=== PATIENT | male | born 1950 | race Caucasian/White ===

== ENCOUNTER → 2018-06-13 07:36 | Outpatient (CLI) | payer MEDICARE, OTHER, SELFPAY ==
[2018-06-13 10:01] LABS: Alanine Aminotransferase 25 IU/L (21-72); Albumin 3.7 g/dL (3.5-5.0); Albumin Globulin Ratio 1.3 (1.0-2.8); Alkaline Phosphatase 87 U/L (38-126); Aspartate Aminotransferase 15 IU/L (17-59); Bilirubin Total 0.7 mg/dL (0.2-1.3); Blood Urea Nitrogen 21 mg/dL (9-20); Calcium 9.6 mg/dL (8.4-10.2); Carbon Dioxide 29 mmol/L (22-32); Chloride 106 mmol/L (98-107); Cholesterol 184 mg/dL (140-199); Estimated Glomerular Filt Rate > 60.0 mL/min (>60); Globulin 2.9 g/dL (1.7-4.1); Glucose 91 mg/dL (80-110); HDL Cholesterol 50 mg/dL (40-60); HEMOLYSIS < 15 (0-50); LDL Cholesterol Calculated 119 mg/dL (<100); Potassium 4.8 mmol/L (3.4-5.1); Sodium 144 mmol/L (137-145); Total Protein 6.6 g/dL (6.3-8.2); Triglycerides 75 mg/dL (35-150)
== END ==
PROVIDERS: PCP Internal Medicine; Visit Provider Internal Medicine
DX: M15.0 Primary generalized (osteo)arthritis (principal); Z00.00 Encounter for general adult medical examination without abnormal findings; E78.00 Pure hypercholesterolemia, unspecified
CPT/HCPCS: 36415; 80053; 80061

== ENCOUNTER → 2018-07-04 11:09 | Outpatient (CLI) | payer MEDICARE, OTHER, SELFPAY ==
--- NOTE | 2018-07-04 | DI.RAD.S_ITS ---
PROCEDURE: FL BARIUM SWALLOW W SPEECH INDICATIONS: DYSPHAGIA TECHNIQUE: Examination was conducted in conjunction with speech pathology per standard protocol. In the lateral projection, filming was performed of the patient swallowing. AP projection filming may also be performed with patient swallowing. COMPARISON: None. FINDINGS: Function: The oral preparatory phase appears normal, with proper containment. The subsequent oral propulsive phase, pharyngeal phase, and esophageal phase of swallowing also appear normal with all proffered substances. No laryngotracheal penetration or aspiration. No pathologic vallecular pooling. Morphology: No cricopharyngeal bar is identified. No cervical esophageal webs. No Zenker's diverticulum. No strictures. IMPRESSION: No aspiration Dictated by: Zac Brown M.D. on 07/04/2018 at 17:24 Approved by: Zac Brown M.D. on 07/04/2018 at 17:24
== END ==
PROVIDERS: Family Provider Internal Medicine; PCP Internal Medicine; Visit Provider Internal Medicine
DX: R13.10 Dysphagia, unspecified (principal)
CPT/HCPCS: 74230; 92611

== ENCOUNTER 2018-12-16 09:00 | Outpatient (RCR) | payer MEDICARE, OTHER, SELFPAY ==
--- NOTE | 2018-11-08 11:04 | PT.OPPOC ---
Current Diagnoses Unilateral primary osteoarthritis, left knee (11/08/18) Difficulty in walking, not elsewhere classified (11/08/18) Weakness (11/08/18) Presence of left artificial knee joint (11/08/18) Provider Visit Care Team Role Provider Type Rohan Joya MD Primary Care Provider Physician Specialty: Internal Medicine Address: [address] [place] [address], [id number] Email: Reynaldo Abad MD Attending Provider Non-Staff Specialty: Medical Address: [address] [place] [address], [facility] Email: Plan Of Care PT-OP-T Assessment and Plan Start: 11/08/18 09:46 Freq: Status: Active Protocol: Document 11/08/18 09:46 CORINA (Rec: 11/08/18 11:00 SAK [id number]) Physical Therapy Assessment Rehab Potential Rehabilitation Potential Excellent Evaluation Complexity Number of Personal Factors/Comorbidities 1-2 Number of Body Systems Impaired 4 or More Clinical Presentation at Evaluation Stable Impairments Impairments Functional Mobility Gait ROM Strength Goals 4 Impairment Lower extremity functional scale LEFS 56% Short Term Goal (STG) Improve LEFS to 65% STG Duration 4 wks Solderer Assembler Goal (LTG) Improve LEFS to at least 75% LTG Duration 8 wks 3 Impairment strength Short Term Goal (STG) Patient to be compliant with HEP for purposes of knee ROM and strengthening STG Duration 4 wks Half-Way Goal (LTG) Patient to demonstrate at least 4+/4 muscle strength in knee flexors and extensors LTG Duration 8 wks 2 Impairment antalgic gait, step-to on stairs Short Term Goal (STG) Patient will be able to walk on level surfaces without device without significant limp STG Duration 4 wks Half-Way Goal (LTG) Patient will be able to ambulate up/down standard height stairs with reciprocal pattern LTG Duration 8 wks 1 Impairment left knee ROM Short Term Goal (STG) Improve left knee ROM to 5-110 STG Duration 4 wks Solderer Assembler Goal (LTG) Improve left knee ROM to 0-120 LTG Duration 8 wks Assessment Summary Assessment Patient presents to PT 2 wks s /p left TKA overall doing well with limitations in left knee ROM, strength, gait, and functional mobility. He is compliant to his HEP and icing . His motion and pain level are much better than at this point after his right TKA. Anticipate he will progress well and be able to achieve the above goals, possibly ahead of schedule. Physical Therapy Plan Frequency and Duration Frequency of Treatment 2x/Week Duration of Treatment 8 wks Plan of Care Start Date 11/08/18 Plan of Care End Date 01/06/19 Therapeutic Interventions Therapeutic Interventions Aquatic Therapy Gait Training Home Exercise Program Manual Therapy Neuromuscular Re-education Patient/Caregiver Education Self-Care/Home Management Soft Tissue Mobilization Taping Therapeutic Activities Therapeutic Exercises Modalities Cold Pack/Ice Massage Electric Stimulation Next Visit Focus/Plan Next Note Type Treatment Note Next Visit Plan Assess response to first PT session, progress ther ex and HEP, continue with modalities for edema and pain control. Plan of Care Dates Plan of Care Start Date 11/08/18 Plan of Care End Date 01/06/19 Please Sign and Return: I have reviewed this Plan of Care and certify that the skilled therapy services above are required to meet the patient?s needs. Physician Signature Date Printed Name and Credentials Clinical Instructor Signature Printed Name and Credentials
--- NOTE | 2018-11-08 11:04 | PT.OPPOC ---
Current Diagnoses Unilateral primary osteoarthritis, left knee (11/08/18) Difficulty in walking, not elsewhere classified (11/08/18) Weakness (11/08/18) Presence of left artificial knee joint (11/08/18) Provider Visit Care Team Role Provider Type Rohan Joya MD Primary Care Provider Physician Specialty: Internal Medicine Address: [address] [place] [address], [id number] Email: Reynaldo Abad MD Attending Provider Non-Staff Specialty: Medical Address: [address] [place] [address], [facility] Email: Plan Of Care PT-OP-T Assessment and Plan Start: 11/08/18 09:46 Freq: Status: Active Protocol: Document 11/08/18 09:46 CORINA (Rec: 11/08/18 11:00 SAK [id number]) Physical Therapy Assessment Rehab Potential Rehabilitation Potential Excellent Evaluation Complexity Number of Personal Factors/Comorbidities 1-2 Number of Body Systems Impaired 4 or More Clinical Presentation at Evaluation Stable Impairments Impairments Functional Mobility Gait ROM Strength Goals 4 Impairment Lower extremity functional scale LEFS 56% Short Term Goal (STG) Improve LEFS to 65% STG Duration 4 wks Retail Sales Vitamin Consultant Goal (LTG) Improve LEFS to at least 75% LTG Duration 8 wks 3 Impairment strength Short Term Goal (STG) Patient to be compliant with HEP for purposes of knee ROM and strengthening STG Duration 4 wks Group Home Goal (LTG) Patient to demonstrate at least 4+/4 muscle strength in knee flexors and extensors LTG Duration 8 wks 2 Impairment antalgic gait, step-to on stairs Short Term Goal (STG) Patient will be able to walk on level surfaces without device without significant limp STG Duration 4 wks Group Home Goal (LTG) Patient will be able to ambulate up/down standard height stairs with reciprocal pattern LTG Duration 8 wks 1 Impairment left knee ROM Short Term Goal (STG) Improve left knee ROM to 5-110 STG Duration 4 wks Retail Sales Vitamin Consultant Goal (LTG) Improve left knee ROM to 0-120 LTG Duration 8 wks Assessment Summary Assessment Patient presents to PT 2 wks s /p left TKA overall doing well with limitations in left knee ROM, strength, gait, and functional mobility. He is compliant to his HEP and icing . His motion and pain level are much better than at this point after his right TKA. Anticipate he will progress well and be able to achieve the above goals, possibly ahead of schedule. Physical Therapy Plan Frequency and Duration Frequency of Treatment 2x/Week Duration of Treatment 8 wks Plan of Care Start Date 11/08/18 Plan of Care End Date 01/06/19 Therapeutic Interventions Therapeutic Interventions Aquatic Therapy Gait Training Home Exercise Program Manual Therapy Neuromuscular Re-education Patient/Caregiver Education Self-Care/Home Management Soft Tissue Mobilization Taping Therapeutic Activities Therapeutic Exercises Modalities Cold Pack/Ice Massage Electric Stimulation Next Visit Focus/Plan Next Note Type Treatment Note Next Visit Plan Assess response to first PT session, progress ther ex and HEP, continue with modalities for edema and pain control. Plan of Care Dates Plan of Care Start Date 11/08/18 Plan of Care End Date 01/06/19 Please Sign and Return: I have reviewed this Plan of Care and certify that the skilled therapy services above are required to meet the patient?s needs. Physician Signature Date Printed Name and Credentials Clinical Instructor Signature Printed Name and Credentials
--- NOTE | 2018-11-08 11:05 | PT.OIE ---
Current Diagnoses Unilateral primary osteoarthritis, left knee (11/08/18) Difficulty in walking, not elsewhere classified (11/08/18) Weakness (11/08/18) Presence of left artificial knee joint (11/08/18) Provider Visit Care Team Role Provider Type Rohan Joya MD Primary Care Provider Physician Specialty: Internal Medicine Address: [address] [place] [address], [id number] Email: Reynaldo Abad MD Attending Provider Non-Staff Specialty: Medical Address: [address] [place] [address], [facility] Email: Physical Therapy Initial Evaluation PT-OP-A Visit Information Start: 11/08/18 09:46 Freq: Status: Active Protocol: Document 11/08/18 09:46 SAK (Rec: 11/08/18 10:24 SAK [id number]) Out-Patient Physical Therapy Visit Information Visit Information Visit Type Initial Evaluation Visit Start Time 09:45 Visit Stop Time 10:40 Total Visit Minutes 55 Visit Number 1 Number of CREPE MAKER Visits 0 Evaluation Information Evaluation Date 11/08/18 PT-OP-B Current Condition Start: 11/08/18 09:46 Freq: Status: Active Protocol: Document 11/08/18 09:46 SAK (Rec: 11/08/18 09:57 SAK [id number]) Current Condition History of Current Condition Onset Date 10/24/18 left TKA Current Complaints limited left knee function History of Current Condition Reports left knee feels better than right, using walker and cane. Prior Treatments and Tests history of right TKA Nov 2018. with difficulty with rehab. Saw surgeon 1 wks ago; patient reports he was pleased with patient's knee. Future Testing and Treatments Planned next appointment with surgeon 12/04/18. Treatment Goals Patient/Caregiver Goals Return to usual activities including biking, pickle ball, golfing. Prior Functional Status Baseline Function- ADL's Independent Baseline Function- Mobility Independent Baseline Function- Gait indep no device Baseline Function- Recreation/Hobbies pickle ball bycycling golfing Current Functional Impairments (Reported) Functional Limitations- ADL's painful Functional Limitations- Mobility/Gait Use of cane, walker Functional Limitations- Recreation/ unable Hobbies PT-OP-C Subjective Start: 11/08/18 09:46 Freq: Status: Active Protocol: Document 11/08/18 09:46 [facility] (Rec: 11/08/18 11:00 [facility] [id number]) Patient Questionnaires Lower Extremity Functional Scale LEFS Score 56 LEFS Impairment 20 to 39% Impaired (Score 48- 62) OP-PT Pain Assessment Pain Assessment Grid Paper Pain Assessment Grid Completed Yes Location left knee Intensity 2 PT-OP-G Mobility & Gait Start: 11/08/18 09:46 Freq: Status: Active Protocol: Document 11/08/18 09:46 [facility] (Rec: 11/08/18 11:00 [facility] [id number]) OP Mobility Evaluation Bed Mobility Rolling indep Supine to and from Sit indep Transfers Sit to Stand indep with minimal use of left LE OP Gait Assessment Gait Gait Assistance Required: Standby Assistance Distance (Feet) 50 Able to Maintain Weight Bearing Status Yes During Gait Assistive Devices Assistive Device Straight Cane Orthotic/Prosthetic Devices or Brace: No Gait Deviations General Gait Pattern Antalgic Decreased Stride Length Decreased Feet Clearance Stair Climbing Evaluation Evaluation Level of Assist On Stairs Standby Assistance Technique/Endurance Stair Climbing Technique Step to Step PT-OP-J Posture/Palpation/Skin Start: 11/08/18 09:46 Freq: Status: Active Protocol: Document 11/08/18 09:46 [facility] (Rec: 11/08/18 11:00 [facility] [id number]) Palpation Assessment Location left knee Palpation Findings Edema Palpation Details mild increase in warmth left knee Skin Assessment Incisional Assessment Incision Appearance/Comments steri-strips all in place, minimal redness, appears to be healing well PT-OP-K Range of Motion Start: 11/08/18 09:46 Freq: Status: Active Protocol: Document 11/08/18 09:46 [facility] (Rec: 11/08/18 11:00 [facility] [id number]) Knee Goniometric Range of Motion Knee Measured in Degrees Left Flexion Active (degrees) 90 Flexion Passive (degrees) 95 Extension Active (degrees) 17 Extension Passive (degrees) 8 Right Flexion Active (degrees) 125 Extension Active (degrees) 0 Knee ROM Limitations Knee ROM Limitations Soft Tissue Tightness Swelling Ankle and Foot Goniometric Range of Motion Ankle and Foot Measured in Degrees veronica Ankle/Foot ROM WFL Yes PT-OP-M Strength Start: 11/08/18 09:46 Freq: Status: Active Protocol: Document 11/08/18 09:46 [facility] (Rec: 11/08/18 11:00 [facility] [id number]) Knee Strength Knee Manual Muscle Testing Left Reason Not Measured Orthopedic Precautions Right Flexion (S2) 5 Normal Extension (L3) 5 Normal Ankle/Foot Strength Ankle and Foot Manual Muscle Testing Left Dorsiflexion (L4) 4+ Good+ Plantarflexion (S1) 4+ Good+ Right Dorsiflexion (L4) 5 Normal Plantarflexion (S1) 5 Normal PT-OP-Q Treatments Start: 11/08/18 09:46 Freq: Status: Active Protocol: Document 11/08/18 09:46 [facility] (Rec: 11/08/18 10:24 [facility] [id number]) Cardio Equipment Recumbent Elliptical (LogicNets) Duration (Minutes) 5 Resistance 1 Seat Position 13 Therapeutic Exercises Supine Exercises ankle pumps Side bilateral Reps/Minutes 10x SAQ Side bilateral Equipment Used roll Reps/Minutes 10x2 heelslide Side bilateral Equipment Used therapy ball Reps/Minutes 10x Standing Exercises HC strech Side bilateral Equipment Used PHYLICIA Reps/Minutes 2x stair lunge Side left Reps/Minutes 10x Comments gentle knee flex Side left Reps/Minutes 10x march Side bilateral Reps/Minutes 10x Gait Training Gait Activity level Device Used straight cane Treatment Focus equal step length and no limp Comments mirror for visual feedback Self-Care/Home Management Treatment Education Patient Education Home Exercise Program Pain Management Other Education edema managment PT-OP-R Modalities Start: 11/08/18 09:46 Freq: Status: Active Protocol: Document 11/08/18 09:46 [facility] (Rec: 11/08/18 11:00 [facility] [id number]) Electric Stimulation Electric Stimulation Interferential Current (IFC) Body Location left knee Duration (Minutes) 10 Intensity 47 Target/Sweep Sweep Patient Position Hooklying Combined With Heat/Cold Cold Pack Comments LE's elevated with wedge and bolster PT-OP-T Assessment and Plan Start: 11/08/18 09:46 Freq: Status: Active Protocol: Document 11/08/18 09:46 [facility] (Rec: 11/08/18 11:00 [facility] [id number]) Physical Therapy Assessment Rehab Potential Rehabilitation Potential Excellent Evaluation Complexity Number of Personal Factors/Comorbidities 1-2 Number of Body Systems Impaired 4 or More Clinical Presentation at Evaluation Stable Impairments Impairments Functional Mobility Gait ROM Strength Goals 4 Impairment Lower extremity functional scale LEFS 56% Short Term Goal (STG) Improve LEFS to 65% STG Duration 4 wks Services Advisor Goal (LTG) Improve LEFS to at least 75% LTG Duration 8 wks 3 Impairment strength Short Term Goal (STG) Patient to be compliant with HEP for purposes of knee ROM and strengthening STG Duration 4 wks Care Home Goal (LTG) Patient to demonstrate at least 4+/4 muscle strength in knee flexors and extensors LTG Duration 8 wks 2 Impairment antalgic gait, step-to on stairs Short Term Goal (STG) Patient will be able to walk on level surfaces without device without significant limp STG Duration 4 wks Care Home Goal (LTG) Patient will be able to ambulate up/down standard height stairs with reciprocal pattern LTG Duration 8 wks 1 Impairment left knee ROM Short Term Goal (STG) Improve left knee ROM to 5-110 STG Duration 4 wks Services Advisor Goal (LTG) Improve left knee ROM to 0-120 LTG Duration 8 wks Assessment Summary Assessment Patient presents to PT 2 wks s /p left TKA overall doing well with limitations in left knee ROM, strength, gait, and functional mobility. He is compliant to his HEP and icing . His motion and pain level are much better than at this point after his right TKA. Anticipate he will progress well and be able to achieve the above goals, possibly ahead of schedule. Physical Therapy Plan Frequency and Duration Frequency of Treatment 2x/Week Duration of Treatment 8 wks Plan of Care Start Date 11/08/18 Plan of Care End Date 01/06/19 Therapeutic Interventions Therapeutic Interventions Aquatic Therapy Gait Training Home Exercise Program Manual Therapy Neuromuscular Re-education Patient/Caregiver Education Self-Care/Home Management Soft Tissue Mobilization Taping Therapeutic Activities Therapeutic Exercises Modalities Cold Pack/Ice Massage Electric Stimulation Next Visit Focus/Plan Next Note Type Treatment Note Next Visit Plan Assess response to first PT session, progress ther ex and HEP, continue with modalities for edema and pain control.
--- NOTE | 2018-11-10 10:39 | PT.OTN ---
Current Diagnoses Unilateral primary osteoarthritis, left knee (11/10/18) Physical Therapy Treatment Note PT-OP-A Visit Information Start: 11/08/18 09:46 Freq: Status: Active Protocol: Document 11/10/18 09:47 [facility] (Rec: 11/10/18 09:55 SAK [id number]) Out-Patient Physical Therapy Visit Information Visit Information Visit Type Treatment Note Visit Start Time 09:45 Visit Stop Time 10:40 Total Visit Minutes 55 Visit Number 2 Number of PATIENT SAFETY SITTER Visits 0 PT-OP-B Current Condition Start: 11/08/18 09:46 Freq: Status: Active Protocol: Document 11/08/18 09:46 [facility] (Rec: 11/08/18 09:57 SAK [id number]) Current Condition History of Current Condition Onset Date 10/24/18 left TKA Current Complaints limited left knee function History of Current Condition Reports left knee feels better than right, using walker and cane. Prior Treatments and Tests history of right TKA Nov 2018. with difficulty with rehab. Saw surgeon 1 wks ago; patient reports he was pleased with patient's knee. Future Testing and Treatments Planned next appointment with surgeon 12/04/18. Treatment Goals Patient/Caregiver Goals Return to usual activities including biking, pickle ball, golfing. Prior Functional Status Baseline Function- ADL's Independent Baseline Function- Mobility Independent Baseline Function- Gait indep no device Baseline Function- Recreation/Hobbies pickle ball bycycling golfing Current Functional Impairments (Reported) Functional Limitations- ADL's painful Functional Limitations- Mobility/Gait Use of cane, walker Functional Limitations- Recreation/ unable Hobbies PT-OP-C Subjective Start: 11/08/18 09:46 Freq: Status: Active Protocol: Document 11/10/18 09:47 [facility] (Rec: 11/10/18 10:38 SAK [id number]) OP-PT Subjective Patient Comments Patient Comments Some soreness after first treatment, increased ice and elevation PT-OP-G Mobility & Gait Start: 11/08/18 09:46 Freq: Status: Active Protocol: Document 11/08/18 09:46 [facility] (Rec: 11/08/18 11:00 SAK [id number]) OP Mobility Evaluation Bed Mobility Rolling indep Supine to and from Sit indep Transfers Sit to Stand indep with minimal use of left LE OP Gait Assessment Gait Gait Assistance Required: Standby Assistance Distance (Feet) 50 Able to Maintain Weight Bearing Status Yes During Gait Assistive Devices Assistive Device Straight Cane Orthotic/Prosthetic Devices or Brace: No Gait Deviations General Gait Pattern Antalgic Decreased Stride Length Decreased Feet Clearance Stair Climbing Evaluation Evaluation Level of Assist On Stairs Standby Assistance Technique/Endurance Stair Climbing Technique Step to Step PT-OP-J Posture/Palpation/Skin Start: 11/08/18 09:46 Freq: Status: Active Protocol: Document 11/08/18 09:46 [facility] (Rec: 11/08/18 11:00 [facility] [id number]) Palpation Assessment Location left knee Palpation Findings Edema Palpation Details mild increase in warmth left knee Skin Assessment Incisional Assessment Incision Appearance/Comments steri-strips all in place, minimal redness, appears to be healing well PT-OP-K Range of Motion Start: 11/08/18 09:46 Freq: Status: Active Protocol: Document 11/08/18 09:46 [facility] (Rec: 11/08/18 11:00 [facility] [id number]) Knee Goniometric Range of Motion Knee Measured in Degrees Left Flexion Active (degrees) 90 Flexion Passive (degrees) 95 Extension Active (degrees) 17 Extension Passive (degrees) 8 Right Flexion Active (degrees) 125 Extension Active (degrees) 0 Knee ROM Limitations Knee ROM Limitations Soft Tissue Tightness Swelling Ankle and Foot Goniometric Range of Motion Ankle and Foot Measured in Degrees veronica Ankle/Foot ROM WFL Yes PT-OP-M Strength Start: 11/08/18 09:46 Freq: Status: Active Protocol: Document 11/08/18 09:46 [facility] (Rec: 11/08/18 11:00 [facility] [id number]) Knee Strength Knee Manual Muscle Testing Left Reason Not Measured Orthopedic Precautions Right Flexion (S2) 5 Normal Extension (L3) 5 Normal Ankle/Foot Strength Ankle and Foot Manual Muscle Testing Left Dorsiflexion (L4) 4+ Good+ Plantarflexion (S1) 4+ Good+ Right Dorsiflexion (L4) 5 Normal Plantarflexion (S1) 5 Normal PT-OP-Q Treatments Start: 11/08/18 09:46 Freq: Status: Active Protocol: Document 11/10/18 09:47 [facility] (Rec: 11/10/18 09:55 [facility] [id number]) Cardio Equipment Recumbent Stepper (Sci-Fit) Duration (Minutes) 8 Resistance 1 Seat Position 14 Gym Equipment Shuttle Recovery Bilateral Squats Resistance 50 Shuttle Recovery Platform Stable Reps/Time 2x10 Therapeutic Exercises Supine Exercises SLR Side bilateral Reps/Minutes 10x ankle pumps Side bilateral SAQ Side bilateral heelslide Side left Reps/Minutes therapy ball Sitting Exercises hamstring curl Side left Equipment Used L1 TB gentle resistance Reps/Minutes 10 knee flex with overpressure Side left Reps/Minutes 5x LAQ Side bilateral Reps/Minutes 10x Standing Exercises stair touches Side bilateral Equipment Used 6 Reps/Minutes 10x HC strech Side bilateral Equipment Used PHYLICIA Reps/Minutes 2x stair lunge Side left Reps/Minutes 10x Comments gentle knee flex Side bilateral Reps/Minutes 10x march Side bilateral Reps/Minutes 10x Gait Training Gait Activity level Device Used none Treatment Focus equal step length and no limp Comments mirror for visual feedback PT-OP-R Modalities Start: 11/08/18 09:46 Freq: Status: Active Protocol: Document 11/10/18 09:47 [facility] (Rec: 11/10/18 09:55 [facility] [id number]) Electric Stimulation Electric Stimulation Interferential Current (IFC) Body Location left knee Duration (Minutes) 10 Intensity 47 Target/Sweep Sweep Patient Position Hooklying Combined With Heat/Cold Cold Pack Comments LE's elevated with wedge and bolster PT-OP-T Assessment and Plan Start: 11/08/18 09:46 Freq: Status: Active Protocol: Document 11/10/18 09:47 [facility] (Rec: 11/10/18 09:55 [facility] [id number]) Physical Therapy Assessment Goals 4 Impairment Lower extremity functional scale LEFS 56% Short Term Goal (STG) Improve LEFS to 65% STG Duration 4 wks Energy Efficiency Finance Manager Goal (LTG) Improve LEFS to at least 75% LTG Duration 8 wks 3 Impairment strength Short Term Goal (STG) Patient to be compliant with HEP for purposes of knee ROM and strengthening STG Duration 4 wks Usp Goal (LTG) Patient to demonstrate at least 4+/4 muscle strength in knee flexors and extensors LTG Duration 8 wks 2 Impairment antalgic gait, step-to on stairs Short Term Goal (STG) Patient will be able to walk on level surfaces without device without significant limp STG Duration 4 wks Energy Efficiency Finance Manager Goal (LTG) Patient will be able to ambulate up/down standard height stairs with reciprocal pattern LTG Duration 8 wks 1 Impairment left knee ROM Short Term Goal (STG) Improve left knee ROM to 5-110 STG Duration 4 wks Usp Goal (LTG) Improve left knee ROM to 0-120 LTG Duration 8 wks Assessment Summary Assessment Needs moderate cues for decreasing limp, improving ROM left knee during gait. Increase ini flexion actively to 98, passively 101 Physical Therapy Plan Frequency and Duration Frequency of Treatment 2x/Week Duration of Treatment 8 wks Plan of Care Start Date 11/08/18 Plan of Care End Date 01/06/19 Therapeutic Interventions Therapeutic Interventions Aquatic Therapy Gait Training Home Exercise Program Manual Therapy Neuromuscular Re-education Patient/Caregiver Education Self-Care/Home Management Soft Tissue Mobilization Taping Therapeutic Activities Therapeutic Exercises Modalities Cold Pack/Ice Massage Electric Stimulation Next Visit Focus/Plan Next Note Type Treatment Note Next Visit Plan Next doctort's appointment Continue TKA rehab
--- NOTE | 2018-11-11 14:44 | PT.OTN ---
Current Diagnoses Unilateral primary osteoarthritis, left knee (11/10/18) Physical Therapy Treatment Note PT-OP-A Visit Information Start: 11/08/18 09:46 Freq: Status: Active Protocol: Document 11/10/18 09:47 [facility] (Rec: 11/10/18 09:55 [facility] [id number]) Out-Patient Physical Therapy Visit Information Visit Information Visit Type Treatment Note Visit Start Time 09:45 Visit Stop Time 10:40 Total Visit Minutes 55 Visit Number 2 Number of GOVERNMENT DOCUMENTS LIBRARIAN Visits 0 PT-OP-B Current Condition Start: 11/08/18 09:46 Freq: Status: Active Protocol: Document 11/08/18 09:46 [facility] (Rec: 11/08/18 09:57 [facility]AK [id number]) Current Condition History of Current Condition Onset Date 10/24/18 left TKA Current Complaints limited left knee function History of Current Condition Reports left knee feels better than right, using walker and cane. Prior Treatments and Tests history of right TKA Nov 2018. with difficulty with rehab. Saw surgeon 1 wks ago; patient reports he was pleased with patient's knee. Future Testing and Treatments Planned next appointment with surgeon 12/04/18. Treatment Goals Patient/Caregiver Goals Return to usual activities including biking, pickle ball, golfing. Prior Functional Status Baseline Function- ADL's Independent Baseline Function- Mobility Independent Baseline Function- Gait indep no device Baseline Function- Recreation/Hobbies pickle ball bycycling golfing Current Functional Impairments (Reported) Functional Limitations- ADL's painful Functional Limitations- Mobility/Gait Use of cane, walker Functional Limitations- Recreation/ unable Hobbies PT-OP-C Subjective Start: 11/08/18 09:46 Freq: Status: Active Protocol: Document 11/10/18 09:47 [facility] (Rec: 11/10/18 10:38 SAK [id number]) OP-PT Subjective Patient Comments Patient Comments Some soreness after first treatment, increased ice and elevation PT-OP-G Mobility & Gait Start: 11/08/18 09:46 Freq: Status: Active Protocol: Document 11/08/18 09:46 [facility] (Rec: 11/08/18 11:00 [facility] [id number]) OP Mobility Evaluation Bed Mobility Rolling indep Supine to and from Sit indep Transfers Sit to Stand indep with minimal use of left LE OP Gait Assessment Gait Gait Assistance Required: Standby Assistance Distance (Feet) 50 Able to Maintain Weight Bearing Status Yes During Gait Assistive Devices Assistive Device Straight Cane Orthotic/Prosthetic Devices or Brace: No Gait Deviations General Gait Pattern Antalgic Decreased Stride Length Decreased Feet Clearance Stair Climbing Evaluation Evaluation Level of Assist On Stairs Standby Assistance Technique/Endurance Stair Climbing Technique Step to Step PT-OP-J Posture/Palpation/Skin Start: 11/08/18 09:46 Freq: Status: Active Protocol: Document 11/08/18 09:46 [facility] (Rec: 11/08/18 11:00 [facility] [id number]) Palpation Assessment Location left knee Palpation Findings Edema Palpation Details mild increase in warmth left knee Skin Assessment Incisional Assessment Incision Appearance/Comments steri-strips all in place, minimal redness, appears to be healing well PT-OP-K Range of Motion Start: 11/08/18 09:46 Freq: Status: Active Protocol: Document 11/08/18 09:46 [facility] (Rec: 11/08/18 11:00 [facility] [id number]) Knee Goniometric Range of Motion Knee Measured in Degrees Left Flexion Active (degrees) 90 Flexion Passive (degrees) 95 Extension Active (degrees) 17 Extension Passive (degrees) 8 Right Flexion Active (degrees) 125 Extension Active (degrees) 0 Knee ROM Limitations Knee ROM Limitations Soft Tissue Tightness Swelling Ankle and Foot Goniometric Range of Motion Ankle and Foot Measured in Degrees veronica Ankle/Foot ROM WFL Yes PT-OP-M Strength Start: 11/08/18 09:46 Freq: Status: Active Protocol: Document 11/08/18 09:46 [facility] (Rec: 11/08/18 11:00 [facility] [id number]) Knee Strength Knee Manual Muscle Testing Left Reason Not Measured Orthopedic Precautions Right Flexion (S2) 5 Normal Extension (L3) 5 Normal Ankle/Foot Strength Ankle and Foot Manual Muscle Testing Left Dorsiflexion (L4) 4+ Good+ Plantarflexion (S1) 4+ Good+ Right Dorsiflexion (L4) 5 Normal Plantarflexion (S1) 5 Normal PT-OP-Q Treatments Start: 11/08/18 09:46 Freq: Status: Active Protocol: Document 11/10/18 09:47 [facility] (Rec: 11/10/18 09:55 [facility] [id number]) Cardio Equipment Recumbent Stepper (Sci-Fit) Duration (Minutes) 8 Resistance 1 Seat Position 14 Gym Equipment Shuttle Recovery Bilateral Squats Resistance 50 Shuttle Recovery Platform Stable Reps/Time 2x10 Therapeutic Exercises Supine Exercises SLR Side bilateral Reps/Minutes 10x ankle pumps Side bilateral SAQ Side bilateral heelslide Side left Reps/Minutes therapy ball Sitting Exercises hamstring curl Side left Equipment Used L1 TB gentle resistance Reps/Minutes 10 knee flex with overpressure Side left Reps/Minutes 5x LAQ Side bilateral Reps/Minutes 10x Standing Exercises stair touches Side bilateral Equipment Used 6 Reps/Minutes 10x HC strech Side bilateral Equipment Used PHYLICIA Reps/Minutes 2x stair lunge Side left Reps/Minutes 10x Comments gentle knee flex Side bilateral Reps/Minutes 10x march Side bilateral Reps/Minutes 10x Gait Training Gait Activity level Device Used none Treatment Focus equal step length and no limp Comments mirror for visual feedback Self-Care/Home Management Treatment Education Patient Education Home Exercise Program Other Education updated PT-OP-R Modalities Start: 11/08/18 09:46 Freq: Status: Active Protocol: Document 11/10/18 09:47 [facility] (Rec: 11/10/18 09:55 [facility] [id number]) Electric Stimulation Electric Stimulation Interferential Current (IFC) Body Location left knee Duration (Minutes) 10 Intensity 47 Target/Sweep Sweep Patient Position Hooklying Combined With Heat/Cold Cold Pack Comments LE's elevated with wedge and bolster PT-OP-T Assessment and Plan Start: 11/08/18 09:46 Freq: Status: Active Protocol: Document 11/10/18 09:47 [facility] (Rec: 11/10/18 09:55 [facility] [id number]) Physical Therapy Assessment Goals 4 Impairment Lower extremity functional scale LEFS 56% Short Term Goal (STG) Improve LEFS to 65% STG Duration 4 wks Food Preservation Scientist Goal (LTG) Improve LEFS to at least 75% LTG Duration 8 wks 3 Impairment strength Short Term Goal (STG) Patient to be compliant with HEP for purposes of knee ROM and strengthening STG Duration 4 wks Senior Care Goal (LTG) Patient to demonstrate at least 4+/4 muscle strength in knee flexors and extensors LTG Duration 8 wks 2 Impairment antalgic gait, step-to on stairs Short Term Goal (STG) Patient will be able to walk on level surfaces without device without significant limp STG Duration 4 wks Food Preservation Scientist Goal (LTG) Patient will be able to ambulate up/down standard height stairs with reciprocal pattern LTG Duration 8 wks 1 Impairment left knee ROM Short Term Goal (STG) Improve left knee ROM to 5-110 STG Duration 4 wks Senior Care Goal (LTG) Improve left knee ROM to 0-120 LTG Duration 8 wks Assessment Summary Assessment Needs moderate cues for decreasing limp, improving ROM left knee during gait. Increase ini flexion actively to 98, passively 101 Physical Therapy Plan Frequency and Duration Frequency of Treatment 2x/Week Duration of Treatment 8 wks Plan of Care Start Date 11/08/18 Plan of Care End Date 01/06/19 Therapeutic Interventions Therapeutic Interventions Aquatic Therapy Gait Training Home Exercise Program Manual Therapy Neuromuscular Re-education Patient/Caregiver Education Self-Care/Home Management Soft Tissue Mobilization Taping Therapeutic Activities Therapeutic Exercises Modalities Cold Pack/Ice Massage Electric Stimulation Next Visit Focus/Plan Next Note Type Treatment Note Next Visit Plan Next doctort's appointment Continue TKA rehab
--- NOTE | 2018-11-14 13:09 | PT.OTN ---
Current Diagnoses Unilateral primary osteoarthritis, left knee (11/14/18) Physical Therapy Treatment Note PT-OP-A Visit Information Start: 11/08/18 09:46 Freq: Status: Active Protocol: Document 11/14/18 09:05 [facility] (Rec: 11/14/18 09:54 [facility] [id number]) Out-Patient Physical Therapy Visit Information Visit Information Visit Type Treatment Note Visit Start Time 09:00 Visit Stop Time 09:55 Total Visit Minutes 55 Visit Number 3 Number of BINDER CUTTER HAND Visits 0 Evaluation Information Evaluation Date 11/08/18 PT-OP-B Current Condition Start: 11/08/18 09:46 Freq: Status: Active Protocol: Document 11/08/18 09:46 [facility] (Rec: 11/08/18 09:57 [facility] [id number]) Current Condition History of Current Condition Onset Date 10/24/18 left TKA Current Complaints limited left knee function History of Current Condition Reports left knee feels better than right, using walker and cane. Prior Treatments and Tests history of right TKA Nov 2018. with difficulty with rehab. Saw surgeon 1 wks ago; patient reports he was pleased with patient's knee. Future Testing and Treatments Planned next appointment with surgeon 12/04/18. Treatment Goals Patient/Caregiver Goals Return to usual activities including biking, pickle ball, golfing. Prior Functional Status Baseline Function- ADL's Independent Baseline Function- Mobility Independent Baseline Function- Gait indep no device Baseline Function- Recreation/Hobbies pickle ball bycycling golfing Current Functional Impairments (Reported) Functional Limitations- ADL's painful Functional Limitations- Mobility/Gait Use of cane, walker Functional Limitations- Recreation/ unable Hobbies PT-OP-C Subjective Start: 11/08/18 09:46 Freq: Status: Active Protocol: Document 11/14/18 09:05 [facility] (Rec: 11/14/18 09:54 [facility] [id number]) OP-PT Subjective Patient Comments Patient Comments More sore than he has been since surgery over past couple days though reports he has been more active. PT-OP-G Mobility & Gait Start: 11/08/18 09:46 Freq: Status: Active Protocol: Document 11/08/18 09:46 [facility] (Rec: 11/08/18 11:00 [facility] [id number]) OP Mobility Evaluation Bed Mobility Rolling indep Supine to and from Sit indep Transfers Sit to Stand indep with minimal use of left LE OP Gait Assessment Gait Gait Assistance Required: Standby Assistance Distance (Feet) 50 Able to Maintain Weight Bearing Status Yes During Gait Assistive Devices Assistive Device Straight Cane Orthotic/Prosthetic Devices or Brace: No Gait Deviations General Gait Pattern Antalgic Decreased Stride Length Decreased Feet Clearance Stair Climbing Evaluation Evaluation Level of Assist On Stairs Standby Assistance Technique/Endurance Stair Climbing Technique Step to Step PT-OP-J Posture/Palpation/Skin Start: 11/08/18 09:46 Freq: Status: Active Protocol: Document 11/08/18 09:46 [facility] (Rec: 11/08/18 11:00 [facility] [id number]) Palpation Assessment Location left knee Palpation Findings Edema Palpation Details mild increase in warmth left knee Skin Assessment Incisional Assessment Incision Appearance/Comments steri-strips all in place, minimal redness, appears to be healing well PT-OP-K Range of Motion Start: 11/08/18 09:46 Freq: Status: Active Protocol: Document 11/08/18 09:46 [facility] (Rec: 11/08/18 11:00 [facility] [id number]) Knee Goniometric Range of Motion Knee Measured in Degrees Left Flexion Active (degrees) 90 Flexion Passive (degrees) 95 Extension Active (degrees) 17 Extension Passive (degrees) 8 Right Flexion Active (degrees) 125 Extension Active (degrees) 0 Knee ROM Limitations Knee ROM Limitations Soft Tissue Tightness Swelling Ankle and Foot Goniometric Range of Motion Ankle and Foot Measured in Degrees veronica Ankle/Foot ROM WFL Yes PT-OP-M Strength Start: 11/08/18 09:46 Freq: Status: Active Protocol: Document 11/08/18 09:46 [facility] (Rec: 11/08/18 11:00 [facility] [id number]) Knee Strength Knee Manual Muscle Testing Left Reason Not Measured Orthopedic Precautions Right Flexion (S2) 5 Normal Extension (L3) 5 Normal Ankle/Foot Strength Ankle and Foot Manual Muscle Testing Left Dorsiflexion (L4) 4+ Good+ Plantarflexion (S1) 4+ Good+ Right Dorsiflexion (L4) 5 Normal Plantarflexion (S1) 5 Normal PT-OP-Q Treatments Start: 11/08/18 09:46 Freq: Status: Active Protocol: Document 11/14/18 09:05 [facility] (Rec: 11/14/18 09:54 [facility] [id number]) Cardio Equipment Recumbent Elliptical (Biodex) Duration (Minutes) 5 Resistance 1 Seat Position 13 Bicycle (Upright) Duration (Minutes) 5 Resistance 1 Seat Position 10 Gym Equipment Shuttle Recovery Unilateral Squats Resistance 25 Shuttle Recovery Platform Stable Reps/Time 2x10 Bilateral Squats Resistance 50 Shuttle Recovery Platform Stable Reps/Time 2x10 Therapeutic Exercises Supine Exercises gravity assisted knee flex Reps/Minutes 4x 10 SAQ Side bilateral heelslide Side left Reps/Minutes therapy ball Sitting Exercises hamstring curl Side left Equipment Used L1 TB gentle resistance Reps/Minutes 10 knee flex with overpressure Side left Reps/Minutes 5x LAQ Side bilateral Reps/Minutes 10x Standing Exercises step-ups Equipment Used 4 stairs Reps/Minutes 10x stair touches Side bilateral Equipment Used 6 Reps/Minutes 10x HC strech Side bilateral Equipment Used PHYLICIA Reps/Minutes 2x stair lunge Side left Reps/Minutes 10x Comments gentle knee flex Side bilateral Reps/Minutes 10x Gait Training Gait Activity level Device Used none Treatment Focus equal step length and no limp Comments mirror for visual feedback Manual Therapy Treatment Soft Tissue Mobilization left quads Mobilization Type Myofascial Release Rolling Intensity/Depth Moderate Body Position Hooklying Self-Care/Home Management Treatment Education Patient Education Pain Management Other Education assurance that increased soreness not unusual with increase activity. Instructed to use cane as needed especially toward end of day if pain increasing. PT-OP-R Modalities Start: 11/08/18 09:46 Freq: Status: Active Protocol: Document 11/14/18 09:05 [facility] (Rec: 11/14/18 09:54 [facility] [id number]) Electric Stimulation Electric Stimulation Interferential Current (IFC) Body Location left knee Duration (Minutes) 10 Intensity 47 Target/Sweep Sweep Patient Position Hooklying Combined With Heat/Cold Cold Pack Comments LE's elevated with wedge and bolster PT-OP-T Assessment and Plan Start: 11/08/18 09:46 Freq: Status: Active Protocol: Document 11/14/18 09:05 [facility] (Rec: 11/14/18 09:54 [facility] [id number]) Physical Therapy Assessment Goals 4 Impairment Lower extremity functional scale LEFS 56% Short Term Goal (STG) Improve LEFS to 65% STG Duration 4 wks Rail Car Loader Goal (LTG) Improve LEFS to at least 75% LTG Duration 8 wks 3 Impairment strength Short Term Goal (STG) Patient to be compliant with HEP for purposes of knee ROM and strengthening STG Duration 4 wks Rail Car Loader Goal (LTG) Patient to demonstrate at least 4+/4 muscle strength in knee flexors and extensors LTG Duration 8 wks 2 Impairment antalgic gait, step-to on stairs Short Term Goal (STG) Patient will be able to walk on level surfaces without device without significant limp STG Duration 4 wks Rail Car Loader Goal (LTG) Patient will be able to ambulate up/down standard height stairs with reciprocal pattern LTG Duration 8 wks 1 Impairment left knee ROM Short Term Goal (STG) Improve left knee ROM to 5-110 STG Duration 4 wks Assisted Goal (LTG) Improve left knee ROM to 0-120 LTG Duration 8 wks Assessment Summary Assessment Increased tightness today after minmal exercises yesterday due to increase in soreness. Left knee flex 95/ 100. Patient encouraged to remain compliant to HEP. Physical Therapy Plan Frequency and Duration Frequency of Treatment 2x/Week Duration of Treatment 8 wks Plan of Care Start Date 11/08/18 Plan of Care End Date 01/06/19 Therapeutic Interventions Therapeutic Interventions Aquatic Therapy Gait Training Home Exercise Program Manual Therapy Neuromuscular Re-education Patient/Caregiver Education Self-Care/Home Management Soft Tissue Mobilization Taping Therapeutic Activities Therapeutic Exercises Modalities Cold Pack/Ice Massage Electric Stimulation Next Visit Focus/Plan Next Note Type Treatment Note
--- NOTE | 2018-11-16 09:51 | PT.OTN ---
Current Diagnoses Unilateral primary osteoarthritis, left knee (11/16/18) Physical Therapy Treatment Note PT-OP-A Visit Information Start: 11/08/18 09:46 Freq: Status: Active Protocol: Document 11/16/18 09:01 [facility] (Rec: 11/16/18 09:51 [facility] [id number]) Out-Patient Physical Therapy Visit Information Visit Information Visit Type Treatment Note Visit Start Time 09:00 Visit Stop Time 09:55 Total Visit Minutes 55 Visit Number 4 Number of SPECIAL SERVICES SUPERVISOR Visits 0 Evaluation Information Evaluation Date 11/08/18 PT-OP-B Current Condition Start: 11/08/18 09:46 Freq: Status: Active Protocol: Document 11/08/18 09:46 [facility] (Rec: 11/08/18 09:57 [facility] [id number]) Current Condition History of Current Condition Onset Date 10/24/18 left TKA Current Complaints limited left knee function History of Current Condition Reports left knee feels better than right, using walker and cane. Prior Treatments and Tests history of right TKA Nov 2018. with difficulty with rehab. Saw surgeon 1 wks ago; patient reports he was pleased with patient's knee. Future Testing and Treatments Planned next appointment with surgeon 12/04/18. Treatment Goals Patient/Caregiver Goals Return to usual activities including biking, pickle ball, golfing. Prior Functional Status Baseline Function- ADL's Independent Baseline Function- Mobility Independent Baseline Function- Gait indep no device Baseline Function- Recreation/Hobbies pickle ball bycycling golfing Current Functional Impairments (Reported) Functional Limitations- ADL's painful Functional Limitations- Mobility/Gait Use of cane, walker Functional Limitations- Recreation/ unable Hobbies PT-OP-C Subjective Start: 11/08/18 09:46 Freq: Status: Active Protocol: Document 11/16/18 09:01 [facility] (Rec: 11/16/18 09:51 [facility] [id number]) OP-PT Subjective Patient Comments Patient Comments No new c/o compliant to HEP PT-OP-G Mobility & Gait Start: 11/08/18 09:46 Freq: Status: Active Protocol: Document 11/08/18 09:46 [facility] (Rec: 11/08/18 11:00 [facility] [id number]) OP Mobility Evaluation Bed Mobility Rolling indep Supine to and from Sit indep Transfers Sit to Stand indep with minimal use of left LE OP Gait Assessment Gait Gait Assistance Required: Standby Assistance Distance (Feet) 50 Able to Maintain Weight Bearing Status Yes During Gait Assistive Devices Assistive Device Straight Cane Orthotic/Prosthetic Devices or Brace: No Gait Deviations General Gait Pattern Antalgic Decreased Stride Length Decreased Feet Clearance Stair Climbing Evaluation Evaluation Level of Assist On Stairs Standby Assistance Technique/Endurance Stair Climbing Technique Step to Step PT-OP-J Posture/Palpation/Skin Start: 11/08/18 09:46 Freq: Status: Active Protocol: Document 11/08/18 09:46 [facility] (Rec: 11/08/18 11:00 [facility] [id number]) Palpation Assessment Location left knee Palpation Findings Edema Palpation Details mild increase in warmth left knee Skin Assessment Incisional Assessment Incision Appearance/Comments steri-strips all in place, minimal redness, appears to be healing well PT-OP-K Range of Motion Start: 11/08/18 09:46 Freq: Status: Active Protocol: Document 11/08/18 09:46 [facility] (Rec: 11/08/18 11:00 [facility] [id number]) Knee Goniometric Range of Motion Knee Measured in Degrees Left Flexion Active (degrees) 90 Flexion Passive (degrees) 95 Extension Active (degrees) 17 Extension Passive (degrees) 8 Right Flexion Active (degrees) 125 Extension Active (degrees) 0 Knee ROM Limitations Knee ROM Limitations Soft Tissue Tightness Swelling Ankle and Foot Goniometric Range of Motion Ankle and Foot Measured in Degrees veronica Ankle/Foot ROM WFL Yes PT-OP-M Strength Start: 11/08/18 09:46 Freq: Status: Active Protocol: Document 11/08/18 09:46 [facility] (Rec: 11/08/18 11:00 [facility] [id number]) Knee Strength Knee Manual Muscle Testing Left Reason Not Measured Orthopedic Precautions Right Flexion (S2) 5 Normal Extension (L3) 5 Normal Ankle/Foot Strength Ankle and Foot Manual Muscle Testing Left Dorsiflexion (L4) 4+ Good+ Plantarflexion (S1) 4+ Good+ Right Dorsiflexion (L4) 5 Normal Plantarflexion (S1) 5 Normal PT-OP-Q Treatments Start: 11/08/18 09:46 Freq: Status: Active Protocol: Document 11/16/18 09:01 [facility] (Rec: 11/16/18 09:51 [facility] [id number]) Cardio Equipment Recumbent Elliptical (Biodex) Duration (Minutes) 5 Resistance 1 Seat Position 13 Bicycle (Upright) Duration (Minutes) 5 Resistance 1 Seat Position 10 Gym Equipment Shuttle Recovery Unilateral Squats Resistance 37 Shuttle Recovery Platform Stable Reps/Time 2x10 Bilateral Squats Resistance 62 Shuttle Recovery Platform Stable Reps/Time 2x10 Shuttle Balance chains red Details bal and wt shift Therapeutic Exercises Supine Exercises gravity assisted knee flex Reps/Minutes 4x 10 Sitting Exercises hamstring curl Side left Equipment Used L1 TB gentle resistance Reps/Minutes 10 knee flex with overpressure Side left Reps/Minutes 5x LAQ Side bilateral Reps/Minutes 10x Standing Exercises HS stretch Reps/Minutes 2x stair touches Side bilateral Equipment Used 6 Reps/Minutes 10x stair lunge Side left Reps/Minutes 10x Comments gentle knee flex Side bilateral Reps/Minutes 10x march Side bilateral Reps/Minutes 10x Gait Training Gait Activity level Device Used none Treatment Focus equal step length and no limp Comments mirror for visual feedback Manual Therapy Treatment Soft Tissue Mobilization left quads Mobilization Type Myofascial Release Rolling Intensity/Depth Moderate Body Position Hooklying Self-Care/Home Management Treatment Education Other Education add stair lunge and LAQ to HEP PT-OP-R Modalities Start: 11/08/18 09:46 Freq: Status: Active Protocol: Document 11/16/18 09:01 [facility] (Rec: 11/16/18 09:51 [facility] [id number]) Electric Stimulation Electric Stimulation Interferential Current (IFC) Body Location left knee Duration (Minutes) 10 Intensity 47 Target/Sweep Sweep Patient Position Hooklying Combined With Heat/Cold Cold Pack Comments LE's elevated with wedge and bolster PT-OP-T Assessment and Plan Start: 11/08/18 09:46 Freq: Status: Active Protocol: Document 11/16/18 09:01 [facility] (Rec: 11/16/18 09:51 [facility] [id number]) Physical Therapy Assessment Goals 4 Impairment Lower extremity functional scale LEFS 56% Short Term Goal (STG) Improve LEFS to 65% STG Duration 4 wks Care Home Goal (LTG) Improve LEFS to at least 75% LTG Duration 8 wks 3 Impairment strength Short Term Goal (STG) Patient to be compliant with HEP for purposes of knee ROM and strengthening STG Duration 4 wks Care Home Goal (LTG) Patient to demonstrate at least 4+/4 muscle strength in knee flexors and extensors LTG Duration 8 wks 2 Impairment antalgic gait, step-to on stairs Short Term Goal (STG) Patient will be able to walk on level surfaces without device without significant limp STG Duration 4 wks Care Home Goal (LTG) Patient will be able to ambulate up/down standard height stairs with reciprocal pattern LTG Duration 8 wks 1 Impairment left knee ROM Short Term Goal (STG) Improve left knee ROM to 5-110 STG Duration 4 wks Care Home Goal (LTG) Improve left knee ROM to 0-120 LTG Duration 8 wks Assessment Summary Assessment Increased left knee ROM: active 98, passive 107. Physical Therapy Plan Frequency and Duration Frequency of Treatment 2x/Week Duration of Treatment 8 wks Plan of Care Start Date 11/08/18 Plan of Care End Date 01/06/19 Therapeutic Interventions Therapeutic Interventions Aquatic Therapy Gait Training Home Exercise Program Manual Therapy Neuromuscular Re-education Patient/Caregiver Education Self-Care/Home Management Soft Tissue Mobilization Taping Therapeutic Activities Therapeutic Exercises Modalities Cold Pack/Ice Massage Electric Stimulation Next Visit Focus/Plan Next Note Type Treatment Note Next Visit Plan Continue TKA rehab
--- NOTE | 2018-11-17 10:54 | PT.OTN ---
Current Diagnoses Unilateral primary osteoarthritis, left knee (11/16/18) Physical Therapy Treatment Note PT-OP-A Visit Information Start: 11/08/18 09:46 Freq: Status: Active Protocol: Document 11/16/18 09:01 [facility] (Rec: 11/16/18 09:51 [facility] [id number]) Out-Patient Physical Therapy Visit Information Visit Information Visit Type Treatment Note Visit Start Time 09:00 Visit Stop Time 09:55 Total Visit Minutes 55 Visit Number 4 Number of APARTMENT GROUNDSKEEPER Visits 0 Evaluation Information Evaluation Date 11/08/18 PT-OP-B Current Condition Start: 11/08/18 09:46 Freq: Status: Active Protocol: Document 11/08/18 09:46 [facility] (Rec: 11/08/18 09:57 [facility] [id number]) Current Condition History of Current Condition Onset Date 10/24/18 left TKA Current Complaints limited left knee function History of Current Condition Reports left knee feels better than right, using walker and cane. Prior Treatments and Tests history of right TKA Nov 2018. with difficulty with rehab. Saw surgeon 1 wks ago; patient reports he was pleased with patient's knee. Future Testing and Treatments Planned next appointment with surgeon 12/04/18. Treatment Goals Patient/Caregiver Goals Return to usual activities including biking, pickle ball, golfing. Prior Functional Status Baseline Function- ADL's Independent Baseline Function- Mobility Independent Baseline Function- Gait indep no device Baseline Function- Recreation/Hobbies pickle ball bycycling golfing Current Functional Impairments (Reported) Functional Limitations- ADL's painful Functional Limitations- Mobility/Gait Use of cane, walker Functional Limitations- Recreation/ unable Hobbies PT-OP-C Subjective Start: 11/08/18 09:46 Freq: Status: Active Protocol: Document 11/16/18 09:01 [facility] (Rec: 11/16/18 09:51 [facility] [id number]) OP-PT Subjective Patient Comments Patient Comments No new c/o compliant to HEP PT-OP-G Mobility & Gait Start: 11/08/18 09:46 Freq: Status: Active Protocol: Document 11/08/18 09:46 [facility] (Rec: 11/08/18 11:00 [facility] [id number]) OP Mobility Evaluation Bed Mobility Rolling indep Supine to and from Sit indep Transfers Sit to Stand indep with minimal use of left LE OP Gait Assessment Gait Gait Assistance Required: Standby Assistance Distance (Feet) 50 Able to Maintain Weight Bearing Status Yes During Gait Assistive Devices Assistive Device Straight Cane Orthotic/Prosthetic Devices or Brace: No Gait Deviations General Gait Pattern Antalgic Decreased Stride Length Decreased Feet Clearance Stair Climbing Evaluation Evaluation Level of Assist On Stairs Standby Assistance Technique/Endurance Stair Climbing Technique Step to Step PT-OP-J Posture/Palpation/Skin Start: 11/08/18 09:46 Freq: Status: Active Protocol: Document 11/08/18 09:46 [facility] (Rec: 11/08/18 11:00 [facility] [id number]) Palpation Assessment Location left knee Palpation Findings Edema Palpation Details mild increase in warmth left knee Skin Assessment Incisional Assessment Incision Appearance/Comments steri-strips all in place, minimal redness, appears to be healing well PT-OP-K Range of Motion Start: 11/08/18 09:46 Freq: Status: Active Protocol: Document 11/08/18 09:46 [facility] (Rec: 11/08/18 11:00 [facility] [id number]) Knee Goniometric Range of Motion Knee Measured in Degrees Left Flexion Active (degrees) 90 Flexion Passive (degrees) 95 Extension Active (degrees) 17 Extension Passive (degrees) 8 Right Flexion Active (degrees) 125 Extension Active (degrees) 0 Knee ROM Limitations Knee ROM Limitations Soft Tissue Tightness Swelling Ankle and Foot Goniometric Range of Motion Ankle and Foot Measured in Degrees veronica Ankle/Foot ROM WFL Yes PT-OP-M Strength Start: 11/08/18 09:46 Freq: Status: Active Protocol: Document 11/08/18 09:46 [facility] (Rec: 11/08/18 11:00 [facility] [id number]) Knee Strength Knee Manual Muscle Testing Left Reason Not Measured Orthopedic Precautions Right Flexion (S2) 5 Normal Extension (L3) 5 Normal Ankle/Foot Strength Ankle and Foot Manual Muscle Testing Left Dorsiflexion (L4) 4+ Good+ Plantarflexion (S1) 4+ Good+ Right Dorsiflexion (L4) 5 Normal Plantarflexion (S1) 5 Normal PT-OP-Q Treatments Start: 11/08/18 09:46 Freq: Status: Active Protocol: Document 11/16/18 09:01 [facility] (Rec: 11/16/18 09:51 [facility] [id number]) Cardio Equipment Recumbent Elliptical (Biodex) Duration (Minutes) 5 Resistance 1 Seat Position 13 Bicycle (Upright) Duration (Minutes) 5 Resistance 1 Seat Position 10 Gym Equipment Shuttle Recovery Unilateral Squats Resistance 37 Shuttle Recovery Platform Stable Reps/Time 2x10 Bilateral Squats Resistance 62 Shuttle Recovery Platform Stable Reps/Time 2x10 Shuttle Balance chains red Details bal and wt shift Therapeutic Exercises Supine Exercises gravity assisted knee flex Reps/Minutes 4x 10 Sitting Exercises hamstring curl Side left Equipment Used L1 TB gentle resistance Reps/Minutes 10 knee flex with overpressure Side left Reps/Minutes 5x LAQ Side bilateral Reps/Minutes 10x Standing Exercises HS stretch Reps/Minutes 2x stair touches Side bilateral Equipment Used 6 Reps/Minutes 10x stair lunge Side left Reps/Minutes 10x Comments gentle knee flex Side bilateral Reps/Minutes 10x march Side bilateral Reps/Minutes 10x Gait Training Gait Activity level Device Used none Treatment Focus equal step length and no limp Comments mirror for visual feedback Manual Therapy Treatment Soft Tissue Mobilization left quads Mobilization Type Myofascial Release Rolling Intensity/Depth Moderate Body Position Hooklying Manual Techniques contract/relax Type for knee flexion Reps/Duration 3 min Self-Care/Home Management Treatment Education Other Education add stair lunge and LAQ to HEP PT-OP-R Modalities Start: 11/08/18 09:46 Freq: Status: Active Protocol: Document 11/16/18 09:01 [facility] (Rec: 11/16/18 09:51 [facility] [id number]) Electric Stimulation Electric Stimulation Interferential Current (IFC) Body Location left knee Duration (Minutes) 10 Intensity 47 Target/Sweep Sweep Patient Position Hooklying Combined With Heat/Cold Cold Pack Comments LE's elevated with wedge and bolster PT-OP-T Assessment and Plan Start: 11/08/18 09:46 Freq: Status: Active Protocol: Document 11/16/18 09:01 [facility] (Rec: 11/16/18 09:51 [facility] [id number]) Physical Therapy Assessment Goals 4 Impairment Lower extremity functional scale LEFS 56% Short Term Goal (STG) Improve LEFS to 65% STG Duration 4 wks Ward Secretary Goal (LTG) Improve LEFS to at least 75% LTG Duration 8 wks 3 Impairment strength Short Term Goal (STG) Patient to be compliant with HEP for purposes of knee ROM and strengthening STG Duration 4 wks Ward Secretary Goal (LTG) Patient to demonstrate at least 4+/4 muscle strength in knee flexors and extensors LTG Duration 8 wks 2 Impairment antalgic gait, step-to on stairs Short Term Goal (STG) Patient will be able to walk on level surfaces without device without significant limp STG Duration 4 wks Fdc Goal (LTG) Patient will be able to ambulate up/down standard height stairs with reciprocal pattern LTG Duration 8 wks 1 Impairment left knee ROM Short Term Goal (STG) Improve left knee ROM to 5-110 STG Duration 4 wks Ward Secretary Goal (LTG) Improve left knee ROM to 0-120 LTG Duration 8 wks Assessment Summary Assessment Increased left knee ROM: active 98, passive 107. Physical Therapy Plan Frequency and Duration Frequency of Treatment 2x/Week Duration of Treatment 8 wks Plan of Care Start Date 11/08/18 Plan of Care End Date 01/06/19 Therapeutic Interventions Therapeutic Interventions Aquatic Therapy Gait Training Home Exercise Program Manual Therapy Neuromuscular Re-education Patient/Caregiver Education Self-Care/Home Management Soft Tissue Mobilization Taping Therapeutic Activities Therapeutic Exercises Modalities Cold Pack/Ice Massage Electric Stimulation Next Visit Focus/Plan Next Note Type Treatment Note Next Visit Plan Continue TKA rehab
--- NOTE | 2018-11-18 14:56 | PT.OTN ---
Current Diagnoses Unilateral primary osteoarthritis, left knee (11/18/18) Physical Therapy Treatment Note PT-OP-A Visit Information Start: 11/08/18 09:46 Freq: Status: Active Protocol: Document 11/18/18 09:06 [facility] (Rec: 11/18/18 09:50 [facility] [id number]) Out-Patient Physical Therapy Visit Information Visit Information Visit Type Treatment Note Visit Start Time 09:00 Visit Stop Time 09:55 Total Visit Minutes 55 Visit Number 5 Number of SECURITY TEST ENGINEER Visits 0 PT-OP-B Current Condition Start: 11/08/18 09:46 Freq: Status: Active Protocol: Document 11/08/18 09:46 [facility] (Rec: 11/08/18 09:57 [facility] [id number]) Current Condition History of Current Condition Onset Date 10/24/18 left TKA Current Complaints limited left knee function History of Current Condition Reports left knee feels better than right, using walker and cane. Prior Treatments and Tests history of right TKA Nov 2018. with difficulty with rehab. Saw surgeon 1 wks ago; patient reports he was pleased with patient's knee. Future Testing and Treatments Planned next appointment with surgeon 12/04/18. Treatment Goals Patient/Caregiver Goals Return to usual activities including biking, pickle ball, golfing. Prior Functional Status Baseline Function- ADL's Independent Baseline Function- Mobility Independent Baseline Function- Gait indep no device Baseline Function- Recreation/Hobbies pickle ball bycycling golfing Current Functional Impairments (Reported) Functional Limitations- ADL's painful Functional Limitations- Mobility/Gait Use of cane, walker Functional Limitations- Recreation/ unable Hobbies PT-OP-C Subjective Start: 11/08/18 09:46 Freq: Status: Active Protocol: Document 11/18/18 09:06 [facility] (Rec: 11/18/18 09:50 [facility] [id number]) OP-PT Subjective Patient Comments Patient Comments Improving ROM, decreasing pain . PT-OP-G Mobility & Gait Start: 11/08/18 09:46 Freq: Status: Active Protocol: Document 11/08/18 09:46 [facility] (Rec: 11/08/18 11:00 [facility] [id number]) OP Mobility Evaluation Bed Mobility Rolling indep Supine to and from Sit indep Transfers Sit to Stand indep with minimal use of left LE OP Gait Assessment Gait Gait Assistance Required: Standby Assistance Distance (Feet) 50 Able to Maintain Weight Bearing Status Yes During Gait Assistive Devices Assistive Device Straight Cane Orthotic/Prosthetic Devices or Brace: No Gait Deviations General Gait Pattern Antalgic Decreased Stride Length Decreased Feet Clearance Stair Climbing Evaluation Evaluation Level of Assist On Stairs Standby Assistance Technique/Endurance Stair Climbing Technique Step to Step PT-OP-J Posture/Palpation/Skin Start: 11/08/18 09:46 Freq: Status: Active Protocol: Document 11/08/18 09:46 [facility] (Rec: 11/08/18 11:00 [facility] [id number]) Palpation Assessment Location left knee Palpation Findings Edema Palpation Details mild increase in warmth left knee Skin Assessment Incisional Assessment Incision Appearance/Comments steri-strips all in place, minimal redness, appears to be healing well PT-OP-K Range of Motion Start: 11/08/18 09:46 Freq: Status: Active Protocol: Document 11/08/18 09:46 [facility] (Rec: 11/08/18 11:00 [facility] [id number]) Knee Goniometric Range of Motion Knee Measured in Degrees Left Flexion Active (degrees) 90 Flexion Passive (degrees) 95 Extension Active (degrees) 17 Extension Passive (degrees) 8 Right Flexion Active (degrees) 125 Extension Active (degrees) 0 Knee ROM Limitations Knee ROM Limitations Soft Tissue Tightness Swelling Ankle and Foot Goniometric Range of Motion Ankle and Foot Measured in Degrees veronica Ankle/Foot ROM WFL Yes PT-OP-M Strength Start: 11/08/18 09:46 Freq: Status: Active Protocol: Document 11/08/18 09:46 [facility] (Rec: 11/08/18 11:00 [facility] [id number]) Knee Strength Knee Manual Muscle Testing Left Reason Not Measured Orthopedic Precautions Right Flexion (S2) 5 Normal Extension (L3) 5 Normal Ankle/Foot Strength Ankle and Foot Manual Muscle Testing Left Dorsiflexion (L4) 4+ Good+ Plantarflexion (S1) 4+ Good+ Right Dorsiflexion (L4) 5 Normal Plantarflexion (S1) 5 Normal PT-OP-Q Treatments Start: 11/08/18 09:46 Freq: Status: Active Protocol: Document 11/18/18 09:06 [facility] (Rec: 11/18/18 09:50 [facility] [id number]) Cardio Equipment Recumbent Stepper (Sci-Fit) Duration (Minutes) 5 Resistance 1 Seat Position 14 Bicycle (Upright) Duration (Minutes) 5 Resistance 1 Seat Position 10 Treadmill Duration (Minutes) 5 Speed 1.5 Incline 0 Gym Equipment Shuttle Recovery Unilateral Squats Resistance 37, 50 Shuttle Recovery Platform Stable Reps/Time 2x10 Bilateral Squats Resistance 75 Shuttle Recovery Platform Stable Reps/Time 2x10 Shuttle Balance chains red Details bal and wt shift Therapeutic Exercises Sitting Exercises hamstring curl Side left Equipment Used L2 TB gentle resistance Reps/Minutes 12x knee flex with overpressure Side left Reps/Minutes 5x Standing Exercises HC strech Side bilateral Equipment Used PHYLICIA Reps/Minutes 2x stair lunge Side left Reps/Minutes 10x Comments gentle Manual Therapy Treatment Soft Tissue Mobilization left quads Mobilization Type Myofascial Release Rolling Intensity/Depth Moderate Body Position Hooklying Comments also along superior aspect of surgical scar PT-OP-R Modalities Start: 11/08/18 09:46 Freq: Status: Active Protocol: Document 11/18/18 09:06 [facility] (Rec: 11/18/18 09:50 [facility] [id number]) Electric Stimulation Electric Stimulation Interferential Current (IFC) Body Location left knee Duration (Minutes) 10 Intensity 47 Target/Sweep Sweep Patient Position Hooklying Combined With Heat/Cold Cold Pack Comments LE's elevated with wedge and bolster PT-OP-T Assessment and Plan Start: 11/08/18 09:46 Freq: Status: Active Protocol: Document 11/18/18 09:06 [facility] (Rec: 11/18/18 09:50 [facility] [id number]) Physical Therapy Assessment Goals 4 Impairment Lower extremity functional scale LEFS 56% Short Term Goal (STG) Improve LEFS to 65% STG Duration 4 wks Care Home Goal (LTG) Improve LEFS to at least 75% LTG Duration 8 wks 3 Impairment strength Short Term Goal (STG) Patient to be compliant with HEP for purposes of knee ROM and strengthening STG Duration 4 wks Care Home Goal (LTG) Patient to demonstrate at least 4+/4 muscle strength in knee flexors and extensors LTG Duration 8 wks 2 Impairment antalgic gait, step-to on stairs Short Term Goal (STG) Patient will be able to walk on level surfaces without device without significant limp STG Duration 4 wks Care Home Goal (LTG) Patient will be able to ambulate up/down standard height stairs with reciprocal pattern LTG Duration 8 wks 1 Impairment left knee ROM Short Term Goal (STG) Improve left knee ROM to 5-110 STG Duration 4 wks Car Starter Goal (LTG) Improve left knee ROM to 0-120 LTG Duration 8 wks Physical Therapy Plan Frequency and Duration Frequency of Treatment 2x/Week Duration of Treatment 8 wks Plan of Care Start Date 11/08/18 Plan of Care End Date 01/06/19 Therapeutic Interventions Therapeutic Interventions Aquatic Therapy Gait Training Home Exercise Program Manual Therapy Neuromuscular Re-education Patient/Caregiver Education Self-Care/Home Management Soft Tissue Mobilization Taping Therapeutic Activities Therapeutic Exercises Modalities Cold Pack/Ice Massage Electric Stimulation Next Visit Focus/Plan Next Note Type Treatment Note Next Visit Plan Continue TKA rehab
--- NOTE | 2018-11-21 14:57 | PT.OTN ---
Current Diagnoses Unilateral primary osteoarthritis, left knee (11/21/18) Physical Therapy Treatment Note PT-OP-A Visit Information Start: 11/08/18 09:46 Freq: Status: Active Protocol: Document 11/21/18 09:12 [facility] (Rec: 11/21/18 09:56 [facility] [id number]) Out-Patient Physical Therapy Visit Information Visit Information Visit Type Treatment Note Visit Start Time 09:00 Visit Stop Time 09:55 Total Visit Minutes 55 Visit Number 6 Number of NEWS DEPARTMENT INTERN Visits 0 Evaluation Information Evaluation Date 11/08/18 PT-OP-B Current Condition Start: 11/08/18 09:46 Freq: Status: Active Protocol: Document 11/08/18 09:46 [facility] (Rec: 11/08/18 09:57 [facility] [id number]) Current Condition History of Current Condition Onset Date 10/24/18 left TKA Current Complaints limited left knee function History of Current Condition Reports left knee feels better than right, using walker and cane. Prior Treatments and Tests history of right TKA Nov 2018. with difficulty with rehab. Saw surgeon 1 wks ago; patient reports he was pleased with patient's knee. Future Testing and Treatments Planned next appointment with surgeon 12/04/18. Treatment Goals Patient/Caregiver Goals Return to usual activities including biking, pickle ball, golfing. Prior Functional Status Baseline Function- ADL's Independent Baseline Function- Mobility Independent Baseline Function- Gait indep no device Baseline Function- Recreation/Hobbies pickle ball bycycling golfing Current Functional Impairments (Reported) Functional Limitations- ADL's painful Functional Limitations- Mobility/Gait Use of cane, walker Functional Limitations- Recreation/ unable Hobbies PT-OP-C Subjective Start: 11/08/18 09:46 Freq: Status: Active Protocol: Document 11/21/18 09:12 [facility] (Rec: 11/21/18 09:56 [facility] [id number]) OP-PT Subjective Patient Comments Patient Comments Stiff this am. Patient Reported Progress Improving PT-OP-G Mobility & Gait Start: 11/08/18 09:46 Freq: Status: Active Protocol: Document 11/08/18 09:46 [facility] (Rec: 11/08/18 11:00 [facility] [id number]) OP Mobility Evaluation Bed Mobility Rolling indep Supine to and from Sit indep Transfers Sit to Stand indep with minimal use of left LE OP Gait Assessment Gait Gait Assistance Required: Standby Assistance Distance (Feet) 50 Able to Maintain Weight Bearing Status Yes During Gait Assistive Devices Assistive Device Straight Cane Orthotic/Prosthetic Devices or Brace: No Gait Deviations General Gait Pattern Antalgic Decreased Stride Length Decreased Feet Clearance Stair Climbing Evaluation Evaluation Level of Assist On Stairs Standby Assistance Technique/Endurance Stair Climbing Technique Step to Step PT-OP-J Posture/Palpation/Skin Start: 11/08/18 09:46 Freq: Status: Active Protocol: Document 11/08/18 09:46 [facility] (Rec: 11/08/18 11:00 [facility] [id number]) Palpation Assessment Location left knee Palpation Findings Edema Palpation Details mild increase in warmth left knee Skin Assessment Incisional Assessment Incision Appearance/Comments steri-strips all in place, minimal redness, appears to be healing well PT-OP-K Range of Motion Start: 11/08/18 09:46 Freq: Status: Active Protocol: Document 11/08/18 09:46 [facility] (Rec: 11/08/18 11:00 [facility] [id number]) Knee Goniometric Range of Motion Knee Measured in Degrees Left Flexion Active (degrees) 90 Flexion Passive (degrees) 95 Extension Active (degrees) 17 Extension Passive (degrees) 8 Right Flexion Active (degrees) 125 Extension Active (degrees) 0 Knee ROM Limitations Knee ROM Limitations Soft Tissue Tightness Swelling Ankle and Foot Goniometric Range of Motion Ankle and Foot Measured in Degrees veronica Ankle/Foot ROM WFL Yes PT-OP-M Strength Start: 11/08/18 09:46 Freq: Status: Active Protocol: Document 11/08/18 09:46 [facility] (Rec: 11/08/18 11:00 [facility] [id number]) Knee Strength Knee Manual Muscle Testing Left Reason Not Measured Orthopedic Precautions Right Flexion (S2) 5 Normal Extension (L3) 5 Normal Ankle/Foot Strength Ankle and Foot Manual Muscle Testing Left Dorsiflexion (L4) 4+ Good+ Plantarflexion (S1) 4+ Good+ Right Dorsiflexion (L4) 5 Normal Plantarflexion (S1) 5 Normal PT-OP-Q Treatments Start: 11/08/18 09:46 Freq: Status: Active Protocol: Document 11/21/18 09:12 [facility] (Rec: 11/21/18 09:56 [facility] [id number]) Cardio Equipment Recumbent Stepper (Sci-Fit) Duration (Minutes) 5 Resistance 1 Seat Position 14 Bicycle (Upright) Duration (Minutes) 7 Resistance 1 Seat Position 10,9, 8 Gym Equipment Shuttle Recovery Unilateral Squats Resistance 37, 50 Shuttle Recovery Platform Stable Reps/Time 2x10 Bilateral Squats Resistance 75 Shuttle Recovery Platform Stable Reps/Time 2x10 Shuttle Balance chains red Details bal and wt shift Therapeutic Exercises Supine Exercises gravity assisted knee flex Reps/Minutes 4x 10 SAQ Side bilateral Reps/Minutes 10x heelslide Side left Equipment Used therapy ball Reps/Minutes 10x Sitting Exercises hamstring curl Side left Equipment Used L2 TB gentle resistance Reps/Minutes 12x knee flex with overpressure Side left Reps/Minutes 5x LAQ Side bilateral Reps/Minutes 10x Standing Exercises HS stretch Side left HC strech Side bilateral Equipment Used PHYLICIA Reps/Minutes 2x stair lunge Side left Gait Training Gait Activity stairs Device Used 1 railing Level of Assistance verbal cues Surface 4 stairs Comments eccentric control left quads impaired with descent Manual Therapy Treatment Soft Tissue Mobilization left quads Body Location quads and scar Mobilization Type Myofascial Release Rolling Intensity/Depth Moderate Body Position Hooklying Comments instructed in use of rolling pin at home Self-Care/Home Management Treatment Education Patient Education Home Exercise Program Other Education issued updated HEP handout PT-OP-R Modalities Start: 11/08/18 09:46 Freq: Status: Active Protocol: Document 11/21/18 09:12 [facility] (Rec: 11/21/18 14:57 [facility] [id number]) Electric Stimulation Electric Stimulation Interferential Current (IFC) Body Location left knee Duration (Minutes) 10 Intensity 47 Target/Sweep Sweep Patient Position Hooklying Combined With Heat/Cold Cold Pack Comments LE's elevated with wedge and bolster PT-OP-T Assessment and Plan Start: 11/08/18 09:46 Freq: Status: Active Protocol: Document 11/21/18 09:12 [facility] (Rec: 11/21/18 14:57 [facility] [id number]) Physical Therapy Assessment Rehab Potential Rehabilitation Potential Excellent Evaluation Complexity Number of Personal Factors/Comorbidities 1-2 Number of Body Systems Impaired 4 or More Clinical Presentation at Evaluation Stable Impairments Impairments Functional Mobility Gait ROM Strength Goals 4 Impairment Lower extremity functional scale LEFS 56% Short Term Goal (STG) Improve LEFS to 65% STG Duration 4 wks Retirement Goal (LTG) Improve LEFS to at least 75% LTG Duration 8 wks 3 Impairment strength Short Term Goal (STG) Patient to be compliant with HEP for purposes of knee ROM and strengthening STG Duration 4 wks Retirement Goal (LTG) Patient to demonstrate at least 4+/4 muscle strength in knee flexors and extensors LTG Duration 8 wks 2 Impairment antalgic gait, step-to on stairs Short Term Goal (STG) Patient will be able to walk on level surfaces without device without significant limp STG Duration 4 wks Retirement Goal (LTG) Patient will be able to ambulate up/down standard height stairs with reciprocal pattern LTG Duration 8 wks 1 Impairment left knee ROM Short Term Goal (STG) Improve left knee ROM to 5-110 STG Duration 4 wks Retirement Goal (LTG) Improve left knee ROM to 0-120 LTG Duration 8 wks Assessment Summary Assessment Increased left knee ROM: active 100, passive 115. Physical Therapy Plan Frequency and Duration Frequency of Treatment 2x/Week Duration of Treatment 8 wks Plan of Care Start Date 11/08/18 Plan of Care End Date 01/06/19 Therapeutic Interventions Therapeutic Interventions Aquatic Therapy Gait Training Home Exercise Program Manual Therapy Neuromuscular Re-education Patient/Caregiver Education Self-Care/Home Management Soft Tissue Mobilization Taping Therapeutic Activities Therapeutic Exercises Modalities Cold Pack/Ice Massage Electric Stimulation Next Visit Focus/Plan Next Note Type Treatment Note Next Visit Plan Progress HEP, ther ext for knee ROM and strengthening, manual therapy for scar and quad mobilization
--- NOTE | 2018-11-23 09:54 | PT.OTN ---
Current Diagnoses Unilateral primary osteoarthritis, left knee (11/23/18) Physical Therapy Treatment Note PT-OP-A Visit Information Start: 11/08/18 09:46 Freq: Status: Active Protocol: Document 11/23/18 09:08 [facility] (Rec: 11/23/18 09:53 [facility] [id number]) Out-Patient Physical Therapy Visit Information Visit Information Visit Type Treatment Note Visit Start Time 09:00 Visit Stop Time 09:55 Total Visit Minutes 55 Visit Number 6 Number of OPS MANAGER Visits 0 Evaluation Information Evaluation Date 11/08/18 PT-OP-B Current Condition Start: 11/08/18 09:46 Freq: Status: Active Protocol: Document 11/08/18 09:46 [facility] (Rec: 11/08/18 09:57 [facility] [id number]) Current Condition History of Current Condition Onset Date 10/24/18 left TKA Current Complaints limited left knee function History of Current Condition Reports left knee feels better than right, using walker and cane. Prior Treatments and Tests history of right TKA Nov 2018. with difficulty with rehab. Saw surgeon 1 wks ago; patient reports he was pleased with patient's knee. Future Testing and Treatments Planned next appointment with surgeon 12/04/18. Treatment Goals Patient/Caregiver Goals Return to usual activities including biking, pickle ball, golfing. Prior Functional Status Baseline Function- ADL's Independent Baseline Function- Mobility Independent Baseline Function- Gait indep no device Baseline Function- Recreation/Hobbies pickle ball bycycling golfing Current Functional Impairments (Reported) Functional Limitations- ADL's painful Functional Limitations- Mobility/Gait Use of cane, walker Functional Limitations- Recreation/ unable Hobbies PT-OP-C Subjective Start: 11/08/18 09:46 Freq: Status: Active Protocol: Document 11/23/18 09:08 [facility] (Rec: 11/23/18 09:53 [facility] [id number]) OP-PT Subjective Patient Comments Patient Comments Compliant with HEP, difficulty finding good place to do knee flexion stretch PT-OP-G Mobility & Gait Start: 11/08/18 09:46 Freq: Status: Active Protocol: Document 11/08/18 09:46 [facility] (Rec: 11/08/18 11:00 [facility] [id number]) OP Mobility Evaluation Bed Mobility Rolling indep Supine to and from Sit indep Transfers Sit to Stand indep with minimal use of left LE OP Gait Assessment Gait Gait Assistance Required: Standby Assistance Distance (Feet) 50 Able to Maintain Weight Bearing Status Yes During Gait Assistive Devices Assistive Device Straight Cane Orthotic/Prosthetic Devices or Brace: No Gait Deviations General Gait Pattern Antalgic Decreased Stride Length Decreased Feet Clearance Stair Climbing Evaluation Evaluation Level of Assist On Stairs Standby Assistance Technique/Endurance Stair Climbing Technique Step to Step PT-OP-J Posture/Palpation/Skin Start: 11/08/18 09:46 Freq: Status: Active Protocol: Document 11/08/18 09:46 [facility] (Rec: 11/08/18 11:00 [facility] [id number]) Palpation Assessment Location left knee Palpation Findings Edema Palpation Details mild increase in warmth left knee Skin Assessment Incisional Assessment Incision Appearance/Comments steri-strips all in place, minimal redness, appears to be healing well PT-OP-K Range of Motion Start: 11/08/18 09:46 Freq: Status: Active Protocol: Document 11/08/18 09:46 [facility] (Rec: 11/08/18 11:00 [facility] [id number]) Knee Goniometric Range of Motion Knee Measured in Degrees Left Flexion Active (degrees) 90 Flexion Passive (degrees) 95 Extension Active (degrees) 17 Extension Passive (degrees) 8 Right Flexion Active (degrees) 125 Extension Active (degrees) 0 Knee ROM Limitations Knee ROM Limitations Soft Tissue Tightness Swelling Ankle and Foot Goniometric Range of Motion Ankle and Foot Measured in Degrees veronica Ankle/Foot ROM WFL Yes PT-OP-M Strength Start: 11/08/18 09:46 Freq: Status: Active Protocol: Document 11/08/18 09:46 [facility] (Rec: 11/08/18 11:00 [facility] [id number]) Knee Strength Knee Manual Muscle Testing Left Reason Not Measured Orthopedic Precautions Right Flexion (S2) 5 Normal Extension (L3) 5 Normal Ankle/Foot Strength Ankle and Foot Manual Muscle Testing Left Dorsiflexion (L4) 4+ Good+ Plantarflexion (S1) 4+ Good+ Right Dorsiflexion (L4) 5 Normal Plantarflexion (S1) 5 Normal PT-OP-Q Treatments Start: 11/08/18 09:46 Freq: Status: Active Protocol: Document 11/23/18 09:08 [facility] (Rec: 11/23/18 09:53 [facility] [id number]) Cardio Equipment Recumbent Stepper (Sci-Fit) Duration (Minutes) 5 Resistance 1 Seat Position 14 Bicycle (Upright) Duration (Minutes) 7 Resistance 1 Seat Position 9,8,7 Treadmill Duration (Minutes) 5 Speed 1.5 Incline 3 Gym Equipment Shuttle Recovery Unilateral Squats Resistance 50, 62 Shuttle Recovery Platform Stable Reps/Time 2x10 Bilateral Squats Resistance 75 Shuttle Recovery Platform Stable Reps/Time 2x10 Therapeutic Exercises Supine Exercises SAQ Side bilateral Reps/Minutes 10x Prone Exercises quad stretch Equipment Used strap Reps/Minutes 3x Sitting Exercises hamstring curl Side left Equipment Used L2 TB gentle resistance Reps/Minutes 12x knee flex with overpressure Side left Reps/Minutes 5x Standing Exercises HS stretch Side left stair lunge Side left Gait Training Gait Activity stairs Device Used 1 railing Level of Assistance verbal cues Surface 4 stairs Comments eccentric control left quads impaired with descent Manual Therapy Treatment Soft Tissue Mobilization left quads Body Location quads and scar Mobilization Type Myofascial Release Rolling Intensity/Depth Moderate Body Position Hooklying Comments instructed in use of rolling pin at home Self-Care/Home Management Treatment Education Other Education Instructed in use of rolling pin for quadricep mobilization PT-OP-R Modalities Start: 11/08/18 09:46 Freq: Status: Active Protocol: Document 11/23/18 09:08 [facility] (Rec: 11/23/18 09:53 [facility] [id number]) Electric Stimulation Electric Stimulation Interferential Current (IFC) Body Location left knee Duration (Minutes) 10 Intensity 47 Target/Sweep Sweep Patient Position Hooklying Combined With Heat/Cold Cold Pack Comments LE's elevated with wedge and bolster PT-OP-T Assessment and Plan Start: 11/08/18 09:46 Freq: Status: Active Protocol: Document 11/23/18 09:08 [facility] (Rec: 11/23/18 09:53 [facility] [id number]) Physical Therapy Assessment Goals 4 Impairment Lower extremity functional scale LEFS 56% Short Term Goal (STG) Improve LEFS to 65% STG Duration 4 wks Mcfp Goal (LTG) Improve LEFS to at least 75% LTG Duration 8 wks 3 Impairment strength Short Term Goal (STG) Patient to be compliant with HEP for purposes of knee ROM and strengthening STG Duration 4 wks Voice Coach Goal (LTG) Patient to demonstrate at least 4+/4 muscle strength in knee flexors and extensors LTG Duration 8 wks 2 Impairment antalgic gait, step-to on stairs Short Term Goal (STG) Patient will be able to walk on level surfaces without device without significant limp STG Duration 4 wks Voice Coach Goal (LTG) Patient will be able to ambulate up/down standard height stairs with reciprocal pattern LTG Duration 8 wks 1 Impairment left knee ROM Short Term Goal (STG) Improve left knee ROM to 5-110 STG Duration 4 wks Voice Coach Goal (LTG) Improve left knee ROM to 0-120 LTG Duration 8 wks Assessment Summary Assessment left knee ROM 102/117. Physical Therapy Plan Frequency and Duration Frequency of Treatment 2x/Week Duration of Treatment 8 wks Plan of Care Start Date 11/08/18 Plan of Care End Date 01/06/19 Therapeutic Interventions Therapeutic Interventions Aquatic Therapy Gait Training Home Exercise Program Manual Therapy Neuromuscular Re-education Patient/Caregiver Education Self-Care/Home Management Soft Tissue Mobilization Taping Therapeutic Activities Therapeutic Exercises Modalities Cold Pack/Ice Massage Electric Stimulation Next Visit Focus/Plan Next Note Type Treatment Note Next Visit Plan Progress HEP, ther ext for knee ROM and strengthening, manual therapy for scar and quad mobilization
--- NOTE | 2018-11-25 10:34 | PT.OTN ---
Current Diagnoses Unilateral primary osteoarthritis, left knee (11/25/18) Physical Therapy Treatment Note PT-OP-A Visit Information Start: 11/08/18 09:46 Freq: Status: Active Protocol: Document 11/25/18 08:59 [facility] (Rec: 11/25/18 09:53 [facility] [id number]) Out-Patient Physical Therapy Visit Information Visit Information Visit Type Treatment Note Visit Start Time 09:00 Visit Stop Time 09:55 Total Visit Minutes 55 Visit Number 8 Number of BUSINESS ACCOUNT SPECIALIST Visits 0 Evaluation Information Evaluation Date 11/08/18 PT-OP-B Current Condition Start: 11/08/18 09:46 Freq: Status: Active Protocol: Document 11/08/18 09:46 [facility] (Rec: 11/08/18 09:57 [facility] [id number]) Current Condition History of Current Condition Onset Date 10/24/18 left TKA Current Complaints limited left knee function History of Current Condition Reports left knee feels better than right, using walker and cane. Prior Treatments and Tests history of right TKA Nov 2018. with difficulty with rehab. Saw surgeon 1 wks ago; patient reports he was pleased with patient's knee. Future Testing and Treatments Planned next appointment with surgeon 12/04/18. Treatment Goals Patient/Caregiver Goals Return to usual activities including biking, pickle ball, golfing. Prior Functional Status Baseline Function- ADL's Independent Baseline Function- Mobility Independent Baseline Function- Gait indep no device Baseline Function- Recreation/Hobbies pickle ball bycycling golfing Current Functional Impairments (Reported) Functional Limitations- ADL's painful Functional Limitations- Mobility/Gait Use of cane, walker Functional Limitations- Recreation/ unable Hobbies PT-OP-C Subjective Start: 11/08/18 09:46 Freq: Status: Active Protocol: Document 11/25/18 08:59 [facility] (Rec: 11/25/18 09:53 [facility] [id number]) OP-PT Subjective Patient Comments Patient Comments No new c/o. PT-OP-G Mobility & Gait Start: 11/08/18 09:46 Freq: Status: Active Protocol: Document 11/08/18 09:46 [facility] (Rec: 11/08/18 11:00 [facility] [id number]) OP Mobility Evaluation Bed Mobility Rolling indep Supine to and from Sit indep Transfers Sit to Stand indep with minimal use of left LE OP Gait Assessment Gait Gait Assistance Required: Standby Assistance Distance (Feet) 50 Able to Maintain Weight Bearing Status Yes During Gait Assistive Devices Assistive Device Straight Cane Orthotic/Prosthetic Devices or Brace: No Gait Deviations General Gait Pattern Antalgic Decreased Stride Length Decreased Feet Clearance Stair Climbing Evaluation Evaluation Level of Assist On Stairs Standby Assistance Technique/Endurance Stair Climbing Technique Step to Step PT-OP-J Posture/Palpation/Skin Start: 11/08/18 09:46 Freq: Status: Active Protocol: Document 11/08/18 09:46 [facility] (Rec: 11/08/18 11:00 [facility] [id number]) Palpation Assessment Location left knee Palpation Findings Edema Palpation Details mild increase in warmth left knee Skin Assessment Incisional Assessment Incision Appearance/Comments steri-strips all in place, minimal redness, appears to be healing well PT-OP-K Range of Motion Start: 11/08/18 09:46 Freq: Status: Active Protocol: Document 11/08/18 09:46 [facility] (Rec: 11/08/18 11:00 [facility] [id number]) Knee Goniometric Range of Motion Knee Measured in Degrees Left Flexion Active (degrees) 90 Flexion Passive (degrees) 95 Extension Active (degrees) 17 Extension Passive (degrees) 8 Right Flexion Active (degrees) 125 Extension Active (degrees) 0 Knee ROM Limitations Knee ROM Limitations Soft Tissue Tightness Swelling Ankle and Foot Goniometric Range of Motion Ankle and Foot Measured in Degrees veronica Ankle/Foot ROM WFL Yes PT-OP-M Strength Start: 11/08/18 09:46 Freq: Status: Active Protocol: Document 11/08/18 09:46 [facility] (Rec: 11/08/18 11:00 [facility] [id number]) Knee Strength Knee Manual Muscle Testing Left Reason Not Measured Orthopedic Precautions Right Flexion (S2) 5 Normal Extension (L3) 5 Normal Ankle/Foot Strength Ankle and Foot Manual Muscle Testing Left Dorsiflexion (L4) 4+ Good+ Plantarflexion (S1) 4+ Good+ Right Dorsiflexion (L4) 5 Normal Plantarflexion (S1) 5 Normal PT-OP-Q Treatments Start: 11/08/18 09:46 Freq: Status: Active Protocol: Document 11/25/18 08:59 [facility] (Rec: 11/25/18 09:53 [facility] [id number]) Cardio Equipment Recumbent Stepper (Sci-Fit) Duration (Minutes) 5 Resistance 1 Seat Position 14 Bicycle (Upright) Duration (Minutes) 7 Resistance 3 Seat Position 9,8,7 Treadmill Duration (Minutes) 5 Speed 1.5 Incline 4 Gym Equipment Shuttle Recovery Unilateral Squats Resistance 50, 62 Shuttle Recovery Platform Stable Reps/Time 2x10 Bilateral Squats Resistance 75 Shuttle Recovery Platform Stable Reps/Time 2x10 Shuttle Balance chains red Details bal and wt shift Therapeutic Exercises Supine Exercises gravity assisted knee flex Reps/Minutes 4x 10 SAQ Side bilateral Reps/Minutes 10x Sitting Exercises hamstring curl Side left Equipment Used L2 TB gentle resistance Reps/Minutes 12x knee flex with overpressure Side left Reps/Minutes 5x LAQ Side bilateral Reps/Minutes 10x Standing Exercises HS stretch Side left HC strech Side bilateral Equipment Used PHYLICIA Reps/Minutes 2x stair lunge Side left Gait Training Gait Activity stairs Device Used 1 railing Level of Assistance verbal cues Surface 4 stairs Comments eccentric control left quads impaired with descent Manual Therapy Treatment Soft Tissue Mobilization left quads Body Location quads and scar Mobilization Type Myofascial Release Rolling Intensity/Depth Moderate Body Position Hooklying Comments instructed in use of rolling pin at home PT-OP-R Modalities Start: 11/08/18 09:46 Freq: Status: Active Protocol: Document 11/25/18 08:59 [facility] (Rec: 11/25/18 09:53 [facility] [id number]) Electric Stimulation Electric Stimulation Interferential Current (IFC) Body Location left knee Duration (Minutes) 10 Intensity 47 Target/Sweep Sweep Patient Position Hooklying Combined With Heat/Cold Cold Pack Comments LE's elevated with wedge and bolster PT-OP-T Assessment and Plan Start: 11/08/18 09:46 Freq: Status: Active Protocol: Document 11/25/18 08:59 [facility] (Rec: 11/25/18 09:53 [facility] [id number]) Physical Therapy Assessment Goals 4 Impairment Lower extremity functional scale LEFS 56% Short Term Goal (STG) Improve LEFS to 65% STG Duration 4 wks Intermediate Goal (LTG) Improve LEFS to at least 75% LTG Duration 8 wks 3 Impairment strength Short Term Goal (STG) Patient to be compliant with HEP for purposes of knee ROM and strengthening STG Duration 4 wks Supervisor Body Assembly Goal (LTG) Patient to demonstrate at least 4+/4 muscle strength in knee flexors and extensors LTG Duration 8 wks 2 Impairment antalgic gait, step-to on stairs Short Term Goal (STG) Patient will be able to walk on level surfaces without device without significant limp STG Duration 4 wks Intermediate Goal (LTG) Patient will be able to ambulate up/down standard height stairs with reciprocal pattern LTG Duration 8 wks 1 Impairment left knee ROM Short Term Goal (STG) Improve left knee ROM to 5-110 STG Duration 4 wks Intermediate Goal (LTG) Improve left knee ROM to 0-120 LTG Duration 8 wks Progress Towards Goals Progress Towards Goals Progressing Toward Goals Assessment Summary Assessment left knee flex inc to 120 Physical Therapy Plan Frequency and Duration Frequency of Treatment 2x/Week Duration of Treatment 8 wks Plan of Care Start Date 11/08/18 Plan of Care End Date 01/06/19 Therapeutic Interventions Therapeutic Interventions Aquatic Therapy Gait Training Home Exercise Program Manual Therapy Neuromuscular Re-education Patient/Caregiver Education Self-Care/Home Management Soft Tissue Mobilization Taping Therapeutic Activities Therapeutic Exercises Modalities Cold Pack/Ice Massage Electric Stimulation Next Visit Focus/Plan Next Note Type Treatment Note Next Visit Plan Continue PT for TKA rehab.
--- NOTE | 2018-11-28 10:03 | PT.OTN ---
Current Diagnoses Unilateral primary osteoarthritis, left knee (11/28/18) Physical Therapy Treatment Note PT-OP-A Visit Information Start: 11/08/18 09:46 Freq: Status: Active Protocol: Document 11/28/18 08:59 [facility] (Rec: 11/28/18 10:03 [facility] [id number]) Out-Patient Physical Therapy Visit Information Visit Information Visit Type Treatment Note Visit Start Time 09:00 Visit Stop Time 09:55 Total Visit Minutes 55 Visit Number 9 Number of REPACK ROOM WORKER Visits 0 Evaluation Information Evaluation Date 11/08/18 PT-OP-B Current Condition Start: 11/08/18 09:46 Freq: Status: Active Protocol: Document 11/08/18 09:46 [facility] (Rec: 11/08/18 09:57 [facility] [id number]) Current Condition History of Current Condition Onset Date 10/24/18 left TKA Current Complaints limited left knee function History of Current Condition Reports left knee feels better than right, using walker and cane. Prior Treatments and Tests history of right TKA Nov 2018. with difficulty with rehab. Saw surgeon 1 wks ago; patient reports he was pleased with patient's knee. Future Testing and Treatments Planned next appointment with surgeon 12/04/18. Treatment Goals Patient/Caregiver Goals Return to usual activities including biking, pickle ball, golfing. Prior Functional Status Baseline Function- ADL's Independent Baseline Function- Mobility Independent Baseline Function- Gait indep no device Baseline Function- Recreation/Hobbies pickle ball bycycling golfing Current Functional Impairments (Reported) Functional Limitations- ADL's painful Functional Limitations- Mobility/Gait Use of cane, walker Functional Limitations- Recreation/ unable Hobbies PT-OP-C Subjective Start: 11/08/18 09:46 Freq: Status: Active Protocol: Document 11/28/18 08:59 [facility] (Rec: 11/28/18 10:03 [facility] [id number]) OP-PT Subjective Patient Comments Patient Comments Continues to be compliant to HEP, feeling he is getting stronger. PT-OP-G Mobility & Gait Start: 11/08/18 09:46 Freq: Status: Active Protocol: Document 11/08/18 09:46 [facility] (Rec: 11/08/18 11:00 [facility] [id number]) OP Mobility Evaluation Bed Mobility Rolling indep Supine to and from Sit indep Transfers Sit to Stand indep with minimal use of left LE OP Gait Assessment Gait Gait Assistance Required: Standby Assistance Distance (Feet) 50 Able to Maintain Weight Bearing Status Yes During Gait Assistive Devices Assistive Device Straight Cane Orthotic/Prosthetic Devices or Brace: No Gait Deviations General Gait Pattern Antalgic Decreased Stride Length Decreased Feet Clearance Stair Climbing Evaluation Evaluation Level of Assist On Stairs Standby Assistance Technique/Endurance Stair Climbing Technique Step to Step PT-OP-J Posture/Palpation/Skin Start: 11/08/18 09:46 Freq: Status: Active Protocol: Document 11/08/18 09:46 [facility] (Rec: 11/08/18 11:00 [facility] [id number]) Palpation Assessment Location left knee Palpation Findings Edema Palpation Details mild increase in warmth left knee Skin Assessment Incisional Assessment Incision Appearance/Comments steri-strips all in place, minimal redness, appears to be healing well PT-OP-K Range of Motion Start: 11/08/18 09:46 Freq: Status: Active Protocol: Document 11/08/18 09:46 [facility] (Rec: 11/08/18 11:00 [facility] [id number]) Knee Goniometric Range of Motion Knee Measured in Degrees Left Flexion Active (degrees) 90 Flexion Passive (degrees) 95 Extension Active (degrees) 17 Extension Passive (degrees) 8 Right Flexion Active (degrees) 125 Extension Active (degrees) 0 Knee ROM Limitations Knee ROM Limitations Soft Tissue Tightness Swelling Ankle and Foot Goniometric Range of Motion Ankle and Foot Measured in Degrees veronica Ankle/Foot ROM WFL Yes PT-OP-M Strength Start: 11/08/18 09:46 Freq: Status: Active Protocol: Document 11/08/18 09:46 [facility] (Rec: 11/08/18 11:00 [facility] [id number]) Knee Strength Knee Manual Muscle Testing Left Reason Not Measured Orthopedic Precautions Right Flexion (S2) 5 Normal Extension (L3) 5 Normal Ankle/Foot Strength Ankle and Foot Manual Muscle Testing Left Dorsiflexion (L4) 4+ Good+ Plantarflexion (S1) 4+ Good+ Right Dorsiflexion (L4) 5 Normal Plantarflexion (S1) 5 Normal PT-OP-Q Treatments Start: 11/08/18 09:46 Freq: Status: Active Protocol: Document 11/28/18 08:59 [facility] (Rec: 11/28/18 10:03 [facility] [id number]) Cardio Equipment Recumbent Stepper (Sci-Fit) Duration (Minutes) 5 Resistance 1 Seat Position 14 Bicycle (Upright) Duration (Minutes) 7 Resistance 3 Seat Position 8,7 Treadmill Duration (Minutes) 5 Speed 1.5 Incline 4 Gym Equipment Shuttle Recovery Unilateral Squats Resistance 62 Shuttle Recovery Platform Stable Reps/Time 2x10 Bilateral Squats Resistance 75 Shuttle Recovery Platform Stable Reps/Time 2x10 Shuttle Balance chains red Details bal and wt shift Therapeutic Exercises Supine Exercises gravity assisted knee flex Reps/Minutes 4x 10 SAQ Side bilateral Reps/Minutes 10x Sitting Exercises stool scoot for hamstring strengthening Reps/Minutes 2 min hamstring curl Side left Equipment Used L2 TB gentle resistance Reps/Minutes 12x knee flex with overpressure Side left Reps/Minutes 5x LAQ Side bilateral Reps/Minutes 10x Standing Exercises lunge walk Reps/Minutes 6x HS stretch Side left HC strech Side bilateral Equipment Used PHYLICIA Reps/Minutes 2x knee flex Side bilateral Reps/Minutes 10x Gait Training Gait Activity stairs Device Used 1 railing Level of Assistance verbal cues Surface 4 stairs x 20 (2 times) Comments 1 UE for balance only now, functional muscular strength improving. Manual Therapy Treatment Soft Tissue Mobilization left quads Body Location quads and scar Mobilization Type Myofascial Release Rolling Intensity/Depth Moderate Body Position Hooklying Comments instructed in use of rolling pin at home PT-OP-R Modalities Start: 11/08/18 09:46 Freq: Status: Active Protocol: Document 11/28/18 08:59 [facility] (Rec: 11/28/18 10:03 [facility] [id number]) Electric Stimulation Electric Stimulation Interferential Current (IFC) Body Location left knee Duration (Minutes) 10 Intensity 47 Target/Sweep Sweep Patient Position Hooklying Combined With Heat/Cold Cold Pack Comments LE's elevated with wedge and bolster PT-OP-T Assessment and Plan Start: 11/08/18 09:46 Freq: Status: Active Protocol: Document 11/28/18 08:59 [facility] (Rec: 11/28/18 10:03 [facility] [id number]) Physical Therapy Assessment Goals 4 Impairment Lower extremity functional scale LEFS 56% Short Term Goal (STG) Improve LEFS to 65% STG Duration 4 wks Plexiglas Former Goal (LTG) Improve LEFS to at least 75% LTG Duration 8 wks 3 Impairment strength Short Term Goal (STG) Patient to be compliant with HEP for purposes of knee ROM and strengthening STG Duration 4 wks Plexiglas Former Goal (LTG) Patient to demonstrate at least 4+/4 muscle strength in knee flexors and extensors LTG Duration 8 wks 2 Impairment antalgic gait, step-to on stairs Short Term Goal (STG) Patient will be able to walk on level surfaces without device without significant limp STG Duration 4 wks Halfway Goal (LTG) Patient will be able to ambulate up/down standard height stairs with reciprocal pattern LTG Duration 8 wks 1 Impairment left knee ROM Short Term Goal (STG) Improve left knee ROM to 5-110 STG Duration 4 wks Halfway Goal (LTG) Improve left knee ROM to 0-120 LTG Duration 8 wks Assessment Summary Assessment Improving functional knee strength Physical Therapy Plan Frequency and Duration Frequency of Treatment 2x/Week Duration of Treatment 8 wks Plan of Care Start Date 11/08/18 Plan of Care End Date 01/06/19 Therapeutic Interventions Therapeutic Interventions Aquatic Therapy Gait Training Home Exercise Program Manual Therapy Neuromuscular Re-education Patient/Caregiver Education Self-Care/Home Management Soft Tissue Mobilization Taping Therapeutic Activities Therapeutic Exercises Modalities Cold Pack/Ice Massage Electric Stimulation Next Visit Focus/Plan Next Note Type Treatment Note
--- NOTE | 2018-11-30 14:19 | PT.OTN ---
Current Diagnoses Unilateral primary osteoarthritis, left knee (11/30/18) Physical Therapy Treatment Note PT-OP-A Visit Information Start: 11/08/18 09:46 Freq: Status: Active Protocol: Document 11/30/18 08:59 [facility] (Rec: 11/30/18 09:50 [facility] [id number]) Out-Patient Physical Therapy Visit Information Visit Information Visit Type Treatment Note Visit Start Time 09:00 Visit Stop Time 09:55 Total Visit Minutes 55 Visit Number 10 Number of CIVIL PROJECT ENGINEER Visits 0 Evaluation Information Evaluation Date 11/08/18 PT-OP-B Current Condition Start: 11/08/18 09:46 Freq: Status: Active Protocol: Document 11/08/18 09:46 [facility] (Rec: 11/08/18 09:57 [facility] [id number]) Current Condition History of Current Condition Onset Date 10/24/18 left TKA Current Complaints limited left knee function History of Current Condition Reports left knee feels better than right, using walker and cane. Prior Treatments and Tests history of right TKA Nov 2018. with difficulty with rehab. Saw surgeon 1 wks ago; patient reports he was pleased with patient's knee. Future Testing and Treatments Planned next appointment with surgeon 12/04/18. Treatment Goals Patient/Caregiver Goals Return to usual activities including biking, pickle ball, golfing. Prior Functional Status Baseline Function- ADL's Independent Baseline Function- Mobility Independent Baseline Function- Gait indep no device Baseline Function- Recreation/Hobbies pickle ball bycycling golfing Current Functional Impairments (Reported) Functional Limitations- ADL's painful Functional Limitations- Mobility/Gait Use of cane, walker Functional Limitations- Recreation/ unable Hobbies PT-OP-C Subjective Start: 11/08/18 09:46 Freq: Status: Active Protocol: Document 11/30/18 08:59 [facility] (Rec: 11/30/18 09:50 [facility] [id number]) OP-PT Subjective Patient Comments Patient Comments Increased soreness and swelling after last session 2 days ago, yesterday better. PT-OP-G Mobility & Gait Start: 11/08/18 09:46 Freq: Status: Active Protocol: Document 11/08/18 09:46 [facility] (Rec: 11/08/18 11:00 [facility] [id number]) OP Mobility Evaluation Bed Mobility Rolling indep Supine to and from Sit indep Transfers Sit to Stand indep with minimal use of left LE OP Gait Assessment Gait Gait Assistance Required: Standby Assistance Distance (Feet) 50 Able to Maintain Weight Bearing Status Yes During Gait Assistive Devices Assistive Device Straight Cane Orthotic/Prosthetic Devices or Brace: No Gait Deviations General Gait Pattern Antalgic Decreased Stride Length Decreased Feet Clearance Stair Climbing Evaluation Evaluation Level of Assist On Stairs Standby Assistance Technique/Endurance Stair Climbing Technique Step to Step PT-OP-J Posture/Palpation/Skin Start: 11/08/18 09:46 Freq: Status: Active Protocol: Document 11/08/18 09:46 [facility] (Rec: 11/08/18 11:00 [facility] [id number]) Palpation Assessment Location left knee Palpation Findings Edema Palpation Details mild increase in warmth left knee Skin Assessment Incisional Assessment Incision Appearance/Comments steri-strips all in place, minimal redness, appears to be healing well PT-OP-K Range of Motion Start: 11/08/18 09:46 Freq: Status: Active Protocol: Document 11/08/18 09:46 [facility] (Rec: 11/08/18 11:00 [facility] [id number]) Knee Goniometric Range of Motion Knee Measured in Degrees Left Flexion Active (degrees) 90 Flexion Passive (degrees) 95 Extension Active (degrees) 17 Extension Passive (degrees) 8 Right Flexion Active (degrees) 125 Extension Active (degrees) 0 Knee ROM Limitations Knee ROM Limitations Soft Tissue Tightness Swelling Ankle and Foot Goniometric Range of Motion Ankle and Foot Measured in Degrees veronica Ankle/Foot ROM WFL Yes PT-OP-M Strength Start: 11/08/18 09:46 Freq: Status: Active Protocol: Document 11/08/18 09:46 [facility] (Rec: 11/08/18 11:00 [facility] [id number]) Knee Strength Knee Manual Muscle Testing Left Reason Not Measured Orthopedic Precautions Right Flexion (S2) 5 Normal Extension (L3) 5 Normal Ankle/Foot Strength Ankle and Foot Manual Muscle Testing Left Dorsiflexion (L4) 4+ Good+ Plantarflexion (S1) 4+ Good+ Right Dorsiflexion (L4) 5 Normal Plantarflexion (S1) 5 Normal PT-OP-Q Treatments Start: 11/08/18 09:46 Freq: Status: Active Protocol: Document 11/30/18 08:59 [facility] (Rec: 11/30/18 09:50 [facility] [id number]) Cardio Equipment Bicycle (Upright) Duration (Minutes) 10 Resistance 3 Seat Position 8,7 Gym Equipment Shuttle Recovery Unilateral Squats Resistance 62 Shuttle Recovery Platform Stable Reps/Time 2x10 Bilateral Squats Resistance 87 Shuttle Recovery Platform Stable Reps/Time 2x10 Shuttle Balance chains red Details bal and wt shift Therapeutic Exercises Supine Exercises gravity assisted knee flex Reps/Minutes 4x 10 SAQ Side bilateral Reps/Minutes 10x Sitting Exercises hamstring curl Side left Equipment Used L2 TB gentle resistance Reps/Minutes 12x knee flex with overpressure Side left Reps/Minutes 5x LAQ Side bilateral Reps/Minutes 10x Standing Exercises HS stretch Side left HC strech Side bilateral Equipment Used PHYLICIA Reps/Minutes 2x stair lunge Side left Gait Training Gait Activity stairs Device Used 1 railing Level of Assistance verbal cues Surface 4 stairs x 20 (2 times) Comments 1 UE for balance only now; one regular speed, one slow Manual Therapy Treatment Soft Tissue Mobilization left quads Body Location quads and scar Mobilization Type Myofascial Release Rolling Intensity/Depth Moderate Body Position Hooklying Comments massage distal quads caused small amount of blood to appear proximal region of scar previously noted to be well- healed; cleaned and covered. Patient instructed to discontinue soft tissue work in that area. PT-OP-R Modalities Start: 11/08/18 09:46 Freq: Status: Active Protocol: Document 11/30/18 08:59 [facility] (Rec: 11/30/18 14:19 [facility] [id number]) Electric Stimulation Electric Stimulation Interferential Current (IFC) Body Location left knee Duration (Minutes) 10 Intensity 47 Target/Sweep Sweep Patient Position Hooklying Combined With Heat/Cold Cold Pack Comments LE's elevated with wedge and bolster PT-OP-T Assessment and Plan Start: 11/08/18 09:46 Freq: Status: Active Protocol: Document 11/30/18 08:59 [facility] (Rec: 11/30/18 14:19 [facility] [id number]) Physical Therapy Assessment Goals 4 Impairment Lower extremity functional scale LEFS 56% Short Term Goal (STG) Improve LEFS to 65% (11/30/18: good progress) STG Duration 4 wks Residential Goal (LTG) Improve LEFS to at least 75% LTG Duration 8 wks 3 Impairment strength Short Term Goal (STG) Patient to be compliant with HEP for purposes of knee ROM and strengthening (ongoing progression but patient highly compliant) STG Duration 4 wks Gristmill Operator Goal (LTG) Patient to demonstrate at least 4+/4 muscle strength in knee flexors and extensors LTG Duration 8 wks 2 Impairment antalgic gait, step-to on stairs Short Term Goal (STG) Patient will be able to walk on level surfaces without device without significant limp (11/30/18 met) STG Duration 4 wks Gristmill Operator Goal (LTG) Patient will be able to ambulate up/down standard height stairs with reciprocal pattern LTG Duration 8 wks 1 Impairment left knee ROM Short Term Goal (STG) Improve left knee ROM to 5-110 (10/30/18 goal met) STG Duration 4 wks Gristmill Operator Goal (LTG) Improve left knee ROM to 0-120 LTG Duration 8 wks Assessment Summary Assessment Patient experienced increased pain and swelling after last session with progressionn of multiple activities. He was encouraged to continue with ex even when sore at home as his response was to elevate and ice, but not do much exercise. Increased stiffness noted today. No signs or symptoms of infection noted on incision but as above patient encouraged to discontinue soft tissue mobiization in that region, keep clean and covered (bandaid applied by PT today) . Physical Therapy Plan Frequency and Duration Frequency of Treatment 2x/Week Duration of Treatment 8 wks Plan of Care Start Date 11/08/18 Plan of Care End Date 01/06/19 Next Visit Focus/Plan Next Note Type Treatment Note Next Visit Plan Progress TKA rehab as tolerated.
--- NOTE | 2018-12-05 17:00 | PT.OTN ---
Current Diagnoses Unilateral primary osteoarthritis, left knee (12/05/18) Physical Therapy Treatment Note PT-OP-A Visit Information Start: 11/08/18 09:46 Freq: Status: Active Protocol: Document 12/05/18 09:12 [facility] (Rec: 12/05/18 09:54 [facility] [id number]) Out-Patient Physical Therapy Visit Information Visit Information Visit Type Treatment Note Visit Start Time 09:00 Visit Stop Time 09:55 Total Visit Minutes 55 Visit Number 12 Number of MICROPHONE OPERATOR Visits 0 Evaluation Information Evaluation Date 11/08/18 PT-OP-B Current Condition Start: 11/08/18 09:46 Freq: Status: Active Protocol: Document 11/08/18 09:46 [facility] (Rec: 11/08/18 09:57 [facility] [id number]) Current Condition History of Current Condition Onset Date 10/24/18 left TKA Current Complaints limited left knee function History of Current Condition Reports left knee feels better than right, using walker and cane. Prior Treatments and Tests history of right TKA Nov 2018. with difficulty with rehab. Saw surgeon 1 wks ago; patient reports he was pleased with patient's knee. Future Testing and Treatments Planned next appointment with surgeon 12/04/18. Treatment Goals Patient/Caregiver Goals Return to usual activities including biking, pickle ball, golfing. Prior Functional Status Baseline Function- ADL's Independent Baseline Function- Mobility Independent Baseline Function- Gait indep no device Baseline Function- Recreation/Hobbies pickle ball bycycling golfing Current Functional Impairments (Reported) Functional Limitations- ADL's painful Functional Limitations- Mobility/Gait Use of cane, walker Functional Limitations- Recreation/ unable Hobbies PT-OP-C Subjective Start: 11/08/18 09:46 Freq: Status: Active Protocol: Document 12/05/18 09:12 [facility] (Rec: 12/05/18 09:54 [facility] [id number]) OP-PT Subjective Patient Comments Patient Comments Sees surgeon 12/06/18. No new c/o. Area on superior aspect of scar that opened up has remained closed. Can now walk close to 1 mile. Has not returned to the gym. Patient Reported Progress Improving PT-OP-G Mobility & Gait Start: 11/08/18 09:46 Freq: Status: Active Protocol: Document 11/08/18 09:46 [facility] (Rec: 11/08/18 11:00 [facility] [id number]) OP Mobility Evaluation Bed Mobility Rolling indep Supine to and from Sit indep Transfers Sit to Stand indep with minimal use of left LE OP Gait Assessment Gait Gait Assistance Required: Standby Assistance Distance (Feet) 50 Able to Maintain Weight Bearing Status Yes During Gait Assistive Devices Assistive Device Straight Cane Orthotic/Prosthetic Devices or Brace: No Gait Deviations General Gait Pattern Antalgic Decreased Stride Length Decreased Feet Clearance Stair Climbing Evaluation Evaluation Level of Assist On Stairs Standby Assistance Technique/Endurance Stair Climbing Technique Step to Step PT-OP-J Posture/Palpation/Skin Start: 11/08/18 09:46 Freq: Status: Active Protocol: Document 11/08/18 09:46 [facility] (Rec: 11/08/18 11:00 [facility] [id number]) Palpation Assessment Location left knee Palpation Findings Edema Palpation Details mild increase in warmth left knee Skin Assessment Incisional Assessment Incision Appearance/Comments steri-strips all in place, minimal redness, appears to be healing well PT-OP-K Range of Motion Start: 11/08/18 09:46 Freq: Status: Active Protocol: Document 11/08/18 09:46 [facility] (Rec: 11/08/18 11:00 [facility] [id number]) Knee Goniometric Range of Motion Knee Measured in Degrees Left Flexion Active (degrees) 90 Flexion Passive (degrees) 95 Extension Active (degrees) 17 Extension Passive (degrees) 8 Right Flexion Active (degrees) 125 Extension Active (degrees) 0 Knee ROM Limitations Knee ROM Limitations Soft Tissue Tightness Swelling Ankle and Foot Goniometric Range of Motion Ankle and Foot Measured in Degrees veronica Ankle/Foot ROM WFL Yes PT-OP-M Strength Start: 11/08/18 09:46 Freq: Status: Active Protocol: Document 11/08/18 09:46 [facility] (Rec: 11/08/18 11:00 [facility] [id number]) Knee Strength Knee Manual Muscle Testing Left Reason Not Measured Orthopedic Precautions Right Flexion (S2) 5 Normal Extension (L3) 5 Normal Ankle/Foot Strength Ankle and Foot Manual Muscle Testing Left Dorsiflexion (L4) 4+ Good+ Plantarflexion (S1) 4+ Good+ Right Dorsiflexion (L4) 5 Normal Plantarflexion (S1) 5 Normal PT-OP-Q Treatments Start: 11/08/18 09:46 Freq: Status: Active Protocol: Document 12/05/18 09:12 [facility] (Rec: 12/05/18 09:54 [facility] [id number]) Cardio Equipment Bicycle (Upright) Duration (Minutes) 10 Resistance 4 Seat Position 8,7 Treadmill Duration (Minutes) 6 Speed 1.5 Incline 0-6 Gym Equipment Cable Column (Body Solid) hamstring curl Details veronica, unil Resistance 40,20 Reps/Time 10x2 Shuttle Recovery Unilateral Squats Resistance 50 Shuttle Recovery Platform Unstable Reps/Time 2x10 Bilateral Squats Resistance 75 Shuttle Recovery Platform Unstable Reps/Time 2x10 Shuttle Balance chains red Details bal and wt shift Therapeutic Exercises Supine Exercises gravity assisted knee flex Reps/Minutes 5x 10 Comments slider sheet SAQ Side bilateral Reps/Minutes 10x Standing Exercises 4 way hip Side left Resistance L1 TB Reps/Minutes 5x HS stretch Side left HC strech Side bilateral Equipment Used PHYLICIA Reps/Minutes 2x stair lunge Side left Gait Training Gait Activity level Device Used none Treatment Focus equal step length and no limp Comments mirror for visual feedback Manual Therapy Treatment Soft Tissue Mobilization left quads Body Location quads and scar Mobilization Type Myofascial Release Rolling Intensity/Depth Moderate Body Position Hooklying Comments massage distal quads caused small amount of blood to appear proximal region of scar previously noted to be well- healed; cleaned and covered. Patient instructed to discontinue soft tissue work in that area. PT-OP-R Modalities Start: 11/08/18 09:46 Freq: Status: Active Protocol: Document 12/05/18 09:12 [facility] (Rec: 12/05/18 17:00 [facility] [id number]) Electric Stimulation Electric Stimulation Interferential Current (IFC) Body Location left knee Duration (Minutes) 10 Intensity 47 Target/Sweep Sweep Patient Position Hooklying Combined With Heat/Cold Cold Pack Comments LE's elevated with wedge and bolster PT-OP-T Assessment and Plan Start: 11/08/18 09:46 Freq: Status: Active Protocol: Document 12/05/18 09:12 [facility] (Rec: 12/05/18 17:00 [facility] [id number]) Physical Therapy Assessment Goals 5 Ceiling Installer Goal (LTG) Patient able to return to prior level of activity including gait on uneven ground without increase in pain or loss of balance and returning to the gym to workout without difficulty. ( 12/05/18; goal progress) LTG Duration 12/16/18 4 Impairment Lower extremity functional scale LEFS 56% Short Term Goal (STG) Improve LEFS to 65% (11/30/18: good progress) STG Duration 4 wks Ceiling Installer Goal (LTG) Improve LEFS to at least 75% ( met 12/05/18) LTG Duration 8 wks 3 Impairment strength Short Term Goal (STG) Patient to be compliant with HEP for purposes of knee ROM and strengthening (ongoing progression but patient highly compliant) STG Duration 4 wks Nursing Home Goal (LTG) Patient to demonstrate at least 4+/4 muscle strength in knee flexors and extensors ( met 12/05/18) LTG Duration 8 wks 2 Impairment antalgic gait, step-to on stairs Short Term Goal (STG) Patient will be able to walk on level surfaces without device without significant limp (11/30/18 met) STG Duration 4 wks Nursing Home Goal (LTG) Patient will be able to ambulate up/down standard height stairs with reciprocal pattern (met 12/05/18) LTG Duration 8 wks 1 Impairment left knee ROM Short Term Goal (STG) Improve left knee ROM to 5-110 (10/30/18 goal met) STG Duration 4 wks Nursing Home Goal (LTG) Improve left knee ROM to 0-120 (12/05/18 goal met: 0-124) LTG Duration 8 wks Progress Towards Goals Progress Towards Goals Progressing Toward Goals Assessment Summary Assessment Excellent progress toward goals, mostly met. Anticipate 3 further PT visits then discharge to independent HEP and gym program Physical Therapy Plan Frequency and Duration Frequency of Treatment 2x/Week Duration of Treatment 8 wks Plan of Care Start Date 11/08/18 Plan of Care End Date 01/06/19 Therapeutic Interventions Therapeutic Interventions Aquatic Therapy Gait Training Home Exercise Program Manual Therapy Neuromuscular Re-education Patient/Caregiver Education Self-Care/Home Management Soft Tissue Mobilization Taping Therapeutic Activities Therapeutic Exercises Modalities Cold Pack/Ice Massage Electric Stimulation Next Visit Focus/Plan Next Note Type Treatment Note Next Visit Plan Progress with functional strengthening and gait training on uneven ground, with resistance to help patient return to prior level of function. Anticipate 3 further PT visits.
--- NOTE | 2018-12-09 10:10 | PT.OTN ---
Current Diagnoses Unilateral primary osteoarthritis, left knee (12/09/18) Physical Therapy Treatment Note PT-OP-A Visit Information Start: 11/08/18 09:46 Freq: Status: Active Protocol: Document 12/09/18 09:04 CORINA (Rec: 12/09/18 10:09 SAK [id number]) Out-Patient Physical Therapy Visit Information Visit Information Visit Type Treatment Note Visit Start Time 09:00 Visit Stop Time 09:55 Total Visit Minutes 55 Visit Number 13 Number of TYPE DISK QUALITY CONTROL SUPERVISOR Visits 0 Evaluation Information Evaluation Date 11/08/18 PT-OP-B Current Condition Start: 11/08/18 09:46 Freq: Status: Active Protocol: Document 11/08/18 09:46 SAK (Rec: 11/08/18 09:57 SAK [id number]) Current Condition History of Current Condition Onset Date 10/24/18 left TKA Current Complaints limited left knee function History of Current Condition Reports left knee feels better than right, using walker and cane. Prior Treatments and Tests history of right TKA Nov 2018. with difficulty with rehab. Saw surgeon 1 wks ago; patient reports he was pleased with patient's knee. Future Testing and Treatments Planned next appointment with surgeon 12/04/18. Treatment Goals Patient/Caregiver Goals Return to usual activities including biking, pickle ball, golfing. Prior Functional Status Baseline Function- ADL's Independent Baseline Function- Mobility Independent Baseline Function- Gait indep no device Baseline Function- Recreation/Hobbies pickle ball bycycling golfing Current Functional Impairments (Reported) Functional Limitations- ADL's painful Functional Limitations- Mobility/Gait Use of cane, walker Functional Limitations- Recreation/ unable Hobbies PT-OP-C Subjective Start: 11/08/18 09:46 Freq: Status: Active Protocol: Document 12/09/18 09:04 CORINA (Rec: 12/09/18 10:09 SAK [id number]) OP-PT Subjective Patient Comments Patient Comments Reports surgeon pleased with his progress. PT-OP-G Mobility & Gait Start: 11/08/18 09:46 Freq: Status: Active Protocol: Document 11/08/18 09:46 SAK (Rec: 11/08/18 11:00 SAK [id number]) OP Mobility Evaluation Bed Mobility Rolling indep Supine to and from Sit indep Transfers Sit to Stand indep with minimal use of left LE OP Gait Assessment Gait Gait Assistance Required: Standby Assistance Distance (Feet) 50 Able to Maintain Weight Bearing Status Yes During Gait Assistive Devices Assistive Device Straight Cane Orthotic/Prosthetic Devices or Brace: No Gait Deviations General Gait Pattern Antalgic Decreased Stride Length Decreased Feet Clearance Stair Climbing Evaluation Evaluation Level of Assist On Stairs Standby Assistance Technique/Endurance Stair Climbing Technique Step to Step PT-OP-J Posture/Palpation/Skin Start: 11/08/18 09:46 Freq: Status: Active Protocol: Document 11/08/18 09:46 [facility] (Rec: 11/08/18 11:00 [facility] [id number]) Palpation Assessment Location left knee Palpation Findings Edema Palpation Details mild increase in warmth left knee Skin Assessment Incisional Assessment Incision Appearance/Comments steri-strips all in place, minimal redness, appears to be healing well PT-OP-K Range of Motion Start: 11/08/18 09:46 Freq: Status: Active Protocol: Document 11/08/18 09:46 [facility] (Rec: 11/08/18 11:00 [facility] [id number]) Knee Goniometric Range of Motion Knee Measured in Degrees Left Flexion Active (degrees) 90 Flexion Passive (degrees) 95 Extension Active (degrees) 17 Extension Passive (degrees) 8 Right Flexion Active (degrees) 125 Extension Active (degrees) 0 Knee ROM Limitations Knee ROM Limitations Soft Tissue Tightness Swelling Ankle and Foot Goniometric Range of Motion Ankle and Foot Measured in Degrees veronica Ankle/Foot ROM WFL Yes PT-OP-M Strength Start: 11/08/18 09:46 Freq: Status: Active Protocol: Document 11/08/18 09:46 [facility] (Rec: 11/08/18 11:00 [facility] [id number]) Knee Strength Knee Manual Muscle Testing Left Reason Not Measured Orthopedic Precautions Right Flexion (S2) 5 Normal Extension (L3) 5 Normal Ankle/Foot Strength Ankle and Foot Manual Muscle Testing Left Dorsiflexion (L4) 4+ Good+ Plantarflexion (S1) 4+ Good+ Right Dorsiflexion (L4) 5 Normal Plantarflexion (S1) 5 Normal PT-OP-Q Treatments Start: 11/08/18 09:46 Freq: Status: Active Protocol: Document 12/09/18 09:04 [facility] (Rec: 12/09/18 10:09 [facility] [id number]) Cardio Equipment Bicycle (Upright) Duration (Minutes) 10 Resistance 4 Seat Position 7,6 Gym Equipment Cable Column (Body Solid) hamstring curl Details veronica, unil Resistance 50,25 Reps/Time 10x2 Shuttle Recovery Unilateral Squats Resistance 50 Shuttle Recovery Platform Stable Reps/Time 2x10 Bilateral Squats Resistance 100 Shuttle Recovery Platform Stable Reps/Time 2x10 Therapeutic Exercises Supine Exercises gravity assisted knee flex Reps/Minutes 5x 10 Comments slider sheet ankle pumps Side bilateral SAQ Side bilateral Reps/Minutes 10x Sitting Exercises hamstring curl Side left Equipment Used L2 TB gentle resistance Reps/Minutes 12x knee flex with overpressure Side left Reps/Minutes 5x LAQ Side bilateral Reps/Minutes 10x Standing Exercises monster walks Standing Exercise Name fwd,bck,side Reps/Minutes L1 TB BOSU lunge Side bilateral Reps/Minutes 10x stair lunge Side left Manual Therapy Treatment Soft Tissue Mobilization left quads Body Location quads and scar Mobilization Type Myofascial Release Rolling Intensity/Depth Moderate Body Position Hooklying Comments massage distal quads caused small amount of blood to appear proximal region of scar previously noted to be well- healed; cleaned and covered. Patient instructed to discontinue soft tissue work in that area. Neuro Re-Education Treatment Balance Activities tandem stand Details firm EO, blue foam EO SLS Details firm EO & EC, blue foam EO, black foam EO Comments also throwing into rebounder with weighted red ball; firm, blue foam PT-OP-R Modalities Start: 11/08/18 09:46 Freq: Status: Active Protocol: Document 12/09/18 09:04 [facility] (Rec: 12/09/18 10:09 [facility] [id number]) Electric Stimulation Electric Stimulation Interferential Current (IFC) Body Location left knee Duration (Minutes) 10 Intensity 47 Target/Sweep Sweep Patient Position Hooklying Combined With Heat/Cold Cold Pack Comments LE's elevated with wedge and bolster PT-OP-T Assessment and Plan Start: 11/08/18 09:46 Freq: Status: Active Protocol: Document 12/09/18 09:04 [facility] (Rec: 12/09/18 10:09 [facility] [id number]) Physical Therapy Assessment Goals 5 Zinc Plate Cutter Goal (LTG) Patient able to return to prior level of activity including gait on uneven ground without increase in pain or loss of balance and returning to the gym to workout without difficulty. ( 12/05/18; goal progress) LTG Duration 12/16/18 4 Impairment Lower extremity functional scale LEFS 56% Short Term Goal (STG) Improve LEFS to 65% (11/30/18: good progress) STG Duration 4 wks Retirement Goal (LTG) Improve LEFS to at least 75% ( met 12/05/18) LTG Duration 8 wks 3 Impairment strength Short Term Goal (STG) Patient to be compliant with HEP for purposes of knee ROM and strengthening (ongoing progression but patient highly compliant) STG Duration 4 wks Retirement Goal (LTG) Patient to demonstrate at least 4+/4 muscle strength in knee flexors and extensors ( met 12/05/18) LTG Duration 8 wks 2 Impairment antalgic gait, step-to on stairs Short Term Goal (STG) Patient will be able to walk on level surfaces without device without significant limp (11/30/18 met) STG Duration 4 wks Retirement Goal (LTG) Patient will be able to ambulate up/down standard height stairs with reciprocal pattern (met 12/05/18) LTG Duration 8 wks 1 Impairment left knee ROM Short Term Goal (STG) Improve left knee ROM to 5-110 (10/30/18 goal met) STG Duration 4 wks Zinc Plate Cutter Goal (LTG) Improve left knee ROM to 0-120 (12/05/18 goal met: 0-124) LTG Duration 8 wks Assessment Summary Assessment Right knee PROM to 123 today. Mild increase in swelling and palpable tightness today. Physical Therapy Plan Frequency and Duration Frequency of Treatment 2x/Week Duration of Treatment 8 wks Plan of Care Start Date 11/08/18 Plan of Care End Date 01/06/19 Therapeutic Interventions Therapeutic Interventions Aquatic Therapy Gait Training Home Exercise Program Manual Therapy Neuromuscular Re-education Patient/Caregiver Education Self-Care/Home Management Soft Tissue Mobilization Taping Therapeutic Activities Therapeutic Exercises Modalities Cold Pack/Ice Massage Electric Stimulation Next Visit Focus/Plan Next Note Type Treatment Note Next Visit Plan Continue PT 2 further visits, emphasis on closed chain, functional ex as bernabe
--- NOTE | 2018-12-12 16:43 | PT.OTN ---
Current Diagnoses Unilateral primary osteoarthritis, left knee (12/12/18) Physical Therapy Treatment Note PT-OP-A Visit Information Start: 11/08/18 09:46 Freq: Status: Active Protocol: Document 12/12/18 09:00 [facility] (Rec: 12/12/18 16:43 [facility] [id number]) Out-Patient Physical Therapy Visit Information Visit Information Visit Type Treatment Note Visit Start Time 09:00 Visit Stop Time 09:55 Total Visit Minutes 55 Visit Number 14 Number of CHILD ATTENDANT Visits 0 Evaluation Information Evaluation Date 11/08/18 PT-OP-B Current Condition Start: 11/08/18 09:46 Freq: Status: Active Protocol: Document 11/08/18 09:46 SAK (Rec: 11/08/18 09:57 SAK [id number]) Current Condition History of Current Condition Onset Date 10/24/18 left TKA Current Complaints limited left knee function History of Current Condition Reports left knee feels better than right, using walker and cane. Prior Treatments and Tests history of right TKA Nov 2018. with difficulty with rehab. Saw surgeon 1 wks ago; patient reports he was pleased with patient's knee. Future Testing and Treatments Planned next appointment with surgeon 12/04/18. Treatment Goals Patient/Caregiver Goals Return to usual activities including biking, pickle ball, golfing. Prior Functional Status Baseline Function- ADL's Independent Baseline Function- Mobility Independent Baseline Function- Gait indep no device Baseline Function- Recreation/Hobbies pickle ball bycycling golfing Current Functional Impairments (Reported) Functional Limitations- ADL's painful Functional Limitations- Mobility/Gait Use of cane, walker Functional Limitations- Recreation/ unable Hobbies PT-OP-C Subjective Start: 11/08/18 09:46 Freq: Status: Active Protocol: Document 12/12/18 09:00 SAK (Rec: 12/12/18 16:43 [facility] [id number]) OP-PT Subjective Patient Comments Patient Comments No new c/o, hasn't returned to the gym, hoping to next week after discharge from PT. PT-OP-G Mobility & Gait Start: 11/08/18 09:46 Freq: Status: Active Protocol: Document 11/08/18 09:46 SAK (Rec: 11/08/18 11:00 [facility] [id number]) OP Mobility Evaluation Bed Mobility Rolling indep Supine to and from Sit indep Transfers Sit to Stand indep with minimal use of left LE OP Gait Assessment Gait Gait Assistance Required: Standby Assistance Distance (Feet) 50 Able to Maintain Weight Bearing Status Yes During Gait Assistive Devices Assistive Device Straight Cane Orthotic/Prosthetic Devices or Brace: No Gait Deviations General Gait Pattern Antalgic Decreased Stride Length Decreased Feet Clearance Stair Climbing Evaluation Evaluation Level of Assist On Stairs Standby Assistance Technique/Endurance Stair Climbing Technique Step to Step PT-OP-J Posture/Palpation/Skin Start: 11/08/18 09:46 Freq: Status: Active Protocol: Document 11/08/18 09:46 [facility] (Rec: 11/08/18 11:00 [facility] [id number]) Palpation Assessment Location left knee Palpation Findings Edema Palpation Details mild increase in warmth left knee Skin Assessment Incisional Assessment Incision Appearance/Comments steri-strips all in place, minimal redness, appears to be healing well PT-OP-K Range of Motion Start: 11/08/18 09:46 Freq: Status: Active Protocol: Document 11/08/18 09:46 [facility] (Rec: 11/08/18 11:00 [facility] [id number]) Knee Goniometric Range of Motion Knee Measured in Degrees Left Flexion Active (degrees) 90 Flexion Passive (degrees) 95 Extension Active (degrees) 17 Extension Passive (degrees) 8 Right Flexion Active (degrees) 125 Extension Active (degrees) 0 Knee ROM Limitations Knee ROM Limitations Soft Tissue Tightness Swelling Ankle and Foot Goniometric Range of Motion Ankle and Foot Measured in Degrees veronica Ankle/Foot ROM WFL Yes PT-OP-M Strength Start: 11/08/18 09:46 Freq: Status: Active Protocol: Document 11/08/18 09:46 [facility] (Rec: 11/08/18 11:00 [facility] [id number]) Knee Strength Knee Manual Muscle Testing Left Reason Not Measured Orthopedic Precautions Right Flexion (S2) 5 Normal Extension (L3) 5 Normal Ankle/Foot Strength Ankle and Foot Manual Muscle Testing Left Dorsiflexion (L4) 4+ Good+ Plantarflexion (S1) 4+ Good+ Right Dorsiflexion (L4) 5 Normal Plantarflexion (S1) 5 Normal PT-OP-Q Treatments Start: 11/08/18 09:46 Freq: Status: Active Protocol: Document 12/12/18 09:00 [facility] (Rec: 12/12/18 16:43 SAK [id number]) Cardio Equipment Elliptical Duration (Minutes) 5 Resistance 2 Bicycle (Upright) Duration (Minutes) 5 Resistance 4 Seat Position 7 Gym Equipment Cable Column (Body Solid) hamstring curl Details veronica, unil Resistance 50,25 Reps/Time 10x2 Shuttle Recovery Unilateral Squats Resistance 50 Shuttle Recovery Platform Stable Reps/Time 2x10 Bilateral Squats Resistance 100 Shuttle Recovery Platform Stable Reps/Time 2x10 Therapeutic Exercises Supine Exercises gravity assisted knee flex Reps/Minutes 5x 10 Comments slider sheet Standing Exercises monster walks Standing Exercise Name fwd,bck,side Reps/Minutes red band step-ups Comments BOSU HC strech Side bilateral Equipment Used PHYLICIA Reps/Minutes 2x stair lunge Side left Manual Therapy Treatment Soft Tissue Mobilization left quads Body Location quads and scar Mobilization Type Myofascial Release Rolling Intensity/Depth Moderate Body Position Hooklying Comments massage distal quads caused small amount of blood to appear proximal region of scar previously noted to be well- healed; cleaned and covered. Patient instructed to discontinue soft tissue work in that area. Neuro Re-Education Treatment Balance Activities obstacle course Comments different density foam, 4 box , balance beams PT-OP-R Modalities Start: 11/08/18 09:46 Freq: Status: Active Protocol: Document 12/12/18 09:00 [facility] (Rec: 12/12/18 16:43 [facility] [id number]) Electric Stimulation Electric Stimulation Interferential Current (IFC) Body Location left knee Duration (Minutes) 10 Intensity 47 Target/Sweep Sweep Patient Position Hooklying Combined With Heat/Cold Cold Pack Comments LE's elevated with wedge and bolster PT-OP-T Assessment and Plan Start: 11/08/18 09:46 Freq: Status: Active Protocol: Document 12/12/18 09:00 [facility] (Rec: 12/12/18 16:43 [facility] [id number]) Physical Therapy Assessment Goals 5 Mcc Goal (LTG) Patient able to return to prior level of activity including gait on uneven ground without increase in pain or loss of balance and returning to the gym to workout without difficulty. ( 12/05/18; goal progress) LTG Duration 12/16/18 4 Impairment Lower extremity functional scale LEFS 56% Short Term Goal (STG) Improve LEFS to 65% (11/30/18: good progress) STG Duration 4 wks Mcc Goal (LTG) Improve LEFS to at least 75% ( met 12/05/18) LTG Duration 8 wks 3 Impairment strength Short Term Goal (STG) Patient to be compliant with HEP for purposes of knee ROM and strengthening (ongoing progression but patient highly compliant) STG Duration 4 wks Mcc Goal (LTG) Patient to demonstrate at least 4+/4 muscle strength in knee flexors and extensors ( met 12/05/18) LTG Duration 8 wks 2 Impairment antalgic gait, step-to on stairs Short Term Goal (STG) Patient will be able to walk on level surfaces without device without significant limp (11/30/18 met) STG Duration 4 wks Mcc Goal (LTG) Patient will be able to ambulate up/down standard height stairs with reciprocal pattern (met 12/05/18) LTG Duration 8 wks 1 Impairment left knee ROM Short Term Goal (STG) Improve left knee ROM to 5-110 (10/30/18 goal met) STG Duration 4 wks Injection Molding Supervisor Goal (LTG) Improve left knee ROM to 0-120 (12/05/18 goal met: 0-124) LTG Duration 8 wks Assessment Summary Assessment right knee flex increased to 124 degrees passively today. Mild LOB with obstacle course uneven ground activity; required CGA Physical Therapy Plan Frequency and Duration Frequency of Treatment 2x/Week Duration of Treatment 8 wks Plan of Care Start Date 11/08/18 Plan of Care End Date 01/06/19 Therapeutic Interventions Therapeutic Interventions Aquatic Therapy Gait Training Home Exercise Program Manual Therapy Neuromuscular Re-education Patient/Caregiver Education Self-Care/Home Management Soft Tissue Mobilization Taping Therapeutic Activities Therapeutic Exercises Modalities Cold Pack/Ice Massage Electric Stimulation Next Visit Focus/Plan Next Note Type Treatment Note Next Visit Plan Discharge after next PT visit; assure indep with HEP and return to gym for community- based exercise.
--- NOTE | 2018-12-16 10:00 | PT.OTN ---
Current Diagnoses Unilateral primary osteoarthritis, left knee (12/16/18) Physical Therapy Treatment Note PT-OP-A Visit Information Start: 11/08/18 09:46 Freq: Status: Active Protocol: Document 12/16/18 09:03 SAK (Rec: 12/16/18 10:00 [facility] [id number]) Out-Patient Physical Therapy Visit Information Visit Information Visit Type Treatment Note Visit Start Time 09:00 Visit Stop Time 09:55 Total Visit Minutes 55 Visit Number 14 Number of LIFE SCIENCE TAXONOMIST Visits 0 Evaluation Information Evaluation Date 11/08/18 PT-OP-B Current Condition Start: 11/08/18 09:46 Freq: Status: Active Protocol: Document 11/08/18 09:46 SAK (Rec: 11/08/18 09:57 SAK [id number]) Current Condition History of Current Condition Onset Date 10/24/18 left TKA Current Complaints limited left knee function History of Current Condition Reports left knee feels better than right, using walker and cane. Prior Treatments and Tests history of right TKA Nov 2018. with difficulty with rehab. Saw surgeon 1 wks ago; patient reports he was pleased with patient's knee. Future Testing and Treatments Planned next appointment with surgeon 12/04/18. Treatment Goals Patient/Caregiver Goals Return to usual activities including biking, pickle ball, golfing. Prior Functional Status Baseline Function- ADL's Independent Baseline Function- Mobility Independent Baseline Function- Gait indep no device Baseline Function- Recreation/Hobbies pickle ball bycycling golfing Current Functional Impairments (Reported) Functional Limitations- ADL's painful Functional Limitations- Mobility/Gait Use of cane, walker Functional Limitations- Recreation/ unable Hobbies PT-OP-C Subjective Start: 11/08/18 09:46 Freq: Status: Active Protocol: Document 12/16/18 09:03 SAK (Rec: 12/16/18 10:00 SAK [id number]) OP-PT Subjective Patient Comments Patient Comments No new c/o. Feels ready for discharge PT-OP-G Mobility & Gait Start: 11/08/18 09:46 Freq: Status: Active Protocol: Document 11/08/18 09:46 SAK (Rec: 11/08/18 11:00 SAK [id number]) OP Mobility Evaluation Bed Mobility Rolling indep Supine to and from Sit indep Transfers Sit to Stand indep with minimal use of left LE OP Gait Assessment Gait Gait Assistance Required: Standby Assistance Distance (Feet) 50 Able to Maintain Weight Bearing Status Yes During Gait Assistive Devices Assistive Device Straight Cane Orthotic/Prosthetic Devices or Brace: No Gait Deviations General Gait Pattern Antalgic Decreased Stride Length Decreased Feet Clearance Stair Climbing Evaluation Evaluation Level of Assist On Stairs Standby Assistance Technique/Endurance Stair Climbing Technique Step to Step PT-OP-J Posture/Palpation/Skin Start: 11/08/18 09:46 Freq: Status: Active Protocol: Document 11/08/18 09:46 [facility] (Rec: 11/08/18 11:00 [facility] [id number]) Palpation Assessment Location left knee Palpation Findings Edema Palpation Details mild increase in warmth left knee Skin Assessment Incisional Assessment Incision Appearance/Comments steri-strips all in place, minimal redness, appears to be healing well PT-OP-K Range of Motion Start: 11/08/18 09:46 Freq: Status: Active Protocol: Document 11/08/18 09:46 [facility] (Rec: 11/08/18 11:00 [facility] [id number]) Knee Goniometric Range of Motion Knee Measured in Degrees Left Flexion Active (degrees) 90 Flexion Passive (degrees) 95 Extension Active (degrees) 17 Extension Passive (degrees) 8 Right Flexion Active (degrees) 125 Extension Active (degrees) 0 Knee ROM Limitations Knee ROM Limitations Soft Tissue Tightness Swelling Ankle and Foot Goniometric Range of Motion Ankle and Foot Measured in Degrees veronica Ankle/Foot ROM WFL Yes PT-OP-M Strength Start: 11/08/18 09:46 Freq: Status: Active Protocol: Document 11/08/18 09:46 [facility] (Rec: 11/08/18 11:00 [facility] [id number]) Knee Strength Knee Manual Muscle Testing Left Reason Not Measured Orthopedic Precautions Right Flexion (S2) 5 Normal Extension (L3) 5 Normal Ankle/Foot Strength Ankle and Foot Manual Muscle Testing Left Dorsiflexion (L4) 4+ Good+ Plantarflexion (S1) 4+ Good+ Right Dorsiflexion (L4) 5 Normal Plantarflexion (S1) 5 Normal PT-OP-Q Treatments Start: 11/08/18 09:46 Freq: Status: Active Protocol: Document 12/16/18 09:03 [facility] (Rec: 12/16/18 10:00 [facility] [id number]) Cardio Equipment Bicycle (Upright) Duration (Minutes) 5 Resistance 4 Seat Position 7 Rowing Machine Duration (Minutes) 4 Resistance 1 Gym Equipment Cable Column (Body Solid) hamstring curl Details veronica, unil Resistance 50,25 Reps/Time 10x2 Shuttle Recovery Unilateral Squats Resistance 50 Shuttle Recovery Platform Stable Reps/Time 2x10 Bilateral Squats Resistance 100 Shuttle Recovery Platform Stable Reps/Time 2x10 Therapeutic Exercises Supine Exercises gravity assisted knee flex Reps/Minutes 5x 10 Comments slider sheet Sitting Exercises knee flex with overpressure Side left Reps/Minutes 5x Standing Exercises monster walks Standing Exercise Name fwd,bck,side Reps/Minutes red band HS stretch Side left HC strech Side bilateral Equipment Used PHYLICIA Reps/Minutes 2x stair lunge Side left Manual Therapy Treatment Soft Tissue Mobilization left quads Body Location quads and scar Mobilization Type Myofascial Release Rolling Intensity/Depth Moderate Body Position Hooklying Comments massage distal quads caused small amount of blood to appear proximal region of scar previously noted to be well- healed; cleaned and covered. Patient instructed to discontinue soft tissue work in that area. Neuro Re-Education Treatment Balance Activities obstacle course Comments different density foam, hurdles, BOSU, balance beams PT-OP-R Modalities Start: 11/08/18 09:46 Freq: Status: Active Protocol: Document 12/16/18 09:03 [facility] (Rec: 12/16/18 10:00 [facility] [id number]) Electric Stimulation Electric Stimulation Interferential Current (IFC) Body Location left knee Duration (Minutes) 10 Intensity 47 Target/Sweep Sweep Patient Position Hooklying Combined With Heat/Cold Cold Pack Comments LE's elevated with wedge and bolster PT-OP-T Assessment and Plan Start: 11/08/18 09:46 Freq: Status: Active Protocol: Document 12/16/18 09:03 [facility] (Rec: 12/16/18 10:00 [facility] [id number]) Physical Therapy Assessment Goals 5 Wallpaper Inspector And Shipper Goal (LTG) Patient able to return to prior level of activity including gait on uneven ground without increase in pain or loss of balance and returning to the gym to workout without difficulty. ( 12/05/18; goal progress) 12/16/18: met LTG Duration 12/16/18 4 Impairment Lower extremity functional scale LEFS 56% Short Term Goal (STG) Improve LEFS to 65% (11/30/18: good progress) STG Duration 4 wks Custodial Goal (LTG) Improve LEFS to at least 75% ( met 12/05/18) LTG Duration 8 wks 3 Impairment strength Short Term Goal (STG) Patient to be compliant with HEP for purposes of knee ROM and strengthening (ongoing progression but patient highly compliant) STG Duration 4 wks Custodial Goal (LTG) Patient to demonstrate at least 4+/4 muscle strength in knee flexors and extensors ( met 12/05/18) LTG Duration 8 wks 2 Impairment antalgic gait, step-to on stairs Short Term Goal (STG) Patient will be able to walk on level surfaces without device without significant limp (11/30/18 met) STG Duration 4 wks Wallpaper Inspector And Shipper Goal (LTG) Patient will be able to ambulate up/down standard height stairs with reciprocal pattern (met 12/05/18) LTG Duration 8 wks 1 Impairment left knee ROM Short Term Goal (STG) Improve left knee ROM to 5-110 (10/30/18 goal met) STG Duration 4 wks Custodial Goal (LTG) Improve left knee ROM to 0-120 (12/05/18 goal met: 0-124) LTG Duration 8 wks Assessment Summary Assessment All goals met. Patient to continue HEP and gradually resume workout in gym. Knee ROM 0-126, strength 4+/5 Physical Therapy Plan Discharge Physical Therapy Discharge Reasons Goals Met
== END 2018-12-16 14:04 ==
LOC: PHYS 09:00
PROVIDERS: PCP Internal Medicine; Visit Provider Orthopaedic Surgery
DX: M17.12 Unilateral primary osteoarthritis, left knee (principal)
CPT/HCPCS: 97014; 97110; 97116; 97140; 97161; G0283

== ENCOUNTER → 2019-08-22 07:37 | Outpatient (CLI) | payer MEDICARE, OTHER, SELFPAY ==
[2019-08-22 09:04] LABS: Blood Urea Nitrogen 18 mg/dL (9-20); Calcium 9.7 mg/dL (8.4-10.2); Carbon Dioxide 27 mmol/L (22-32); Chloride 105 mmol/L (98-107); Cholesterol 176 mg/dL (140-199); Estimated Glomerular Filt Rate > 60.0 mL/min (>60); Glucose 98 mg/dL (80-110); HDL Cholesterol 39 mg/dL (40-60); HEMOLYSIS < 15 (0-50); LDL Cholesterol Calculated 119 mg/dL (<100); Sodium 140 mmol/L (137-145); Triglycerides 90 mg/dL (35-150)
== END ==
PROVIDERS: PCP Internal Medicine; Visit Provider Internal Medicine
DX: E78.00 Pure hypercholesterolemia, unspecified (principal); I10 Essential (primary) hypertension
CPT/HCPCS: 36415; 80048; 80061

== ENCOUNTER → 2019-10-20 08:24 | Outpatient (CLI) | payer MEDICARE, OTHER, SELFPAY ==
[2019-10-20 09:55] LABS: Cholesterol 135 mg/dL (140-199); HDL Cholesterol 49 mg/dL (40-60); LDL Cholesterol Calculated 71 mg/dL (<100); Triglycerides 74 mg/dL (35-150)
== END ==
PROVIDERS: PCP Internal Medicine; Visit Provider Internal Medicine
DX: E78.00 Pure hypercholesterolemia, unspecified (principal)
CPT/HCPCS: 36415; 80061

== ENCOUNTER → 2020-03-27 08:38 | Outpatient (CLI) | payer MEDICARE, OTHER, SELFPAY ==
[2020-03-27 09:37] LABS: Add Manual Diff / Slide Review NO; Basophils Absolute Auto 100 /uL (0-100); Basophils Percent Auto 1.3 % (0-2); Eosinophils Absolute Auto 300 /uL (0-450); Eosinophils Percent Auto 3.6 % (2-4); Hematocrit 47.7 % (41-53); Hemoglobin 15.7 g/dL (13.5-17.5); Lymphocytes Absolute Auto 1600 /uL (1100-4500); Lymphocytes Percent Auto 20.9 % (25-40); Mean Corpuscular HGB Conc 32.9 % (30-36); Mean Corpuscular Hemoglobin 30.5 PG (26-34); Mean Corpuscular Volume 92.6 fL (80-100); Monocytes Absolute Auto 800 /uL (0-900); Monocytes Percent Auto 10.7 % (3-14); Neutrophils Absolute Auto 4800 /uL (1500-7000); Neutrophils Percent Auto 63.5 % (50-75); Platelet Count 286 X10^3/uL (150-400); Red Blood Cell Count 5.15 X10^6/uL (4.5-5.9); Red Cell Distribution Width 13.3 % (11.6-14.8); White Blood Cell Count 7.6 X10^3/uL (4.5-11.0)
[2020-03-28 06:36] LABS: SARS CoV19 IgG Negative (Negative)
== END ==
PROVIDERS: PCP Internal Medicine; Referring Provider Internal Medicine; Visit Provider Internal Medicine
DX: I87.2 Venous insufficiency (chronic) (peripheral) (principal); D69.9 Hemorrhagic condition, unspecified; Z03.818 Encounter for observation for suspected exposure to other biological agents ruled out
CPT/HCPCS: 36415; 85025; 86769

== ENCOUNTER → 2020-11-12 16:00 | Outpatient (CLI) | payer MEDICARE, OTHER, SELFPAY ==
[2020-11-12] MEDS: COVID-19 VACC #1, MRNA(MOD) 100 MCG/0.5 ML VIAL IM (16:13)
== END ==
PROVIDERS: PCP Internal Medicine; Visit Provider Internal Medicine
DX: Z23 Encounter for immunization (principal)
CPT/HCPCS: 0011A; 91301

== ENCOUNTER → 2020-11-13 08:14 | Outpatient (CLI) | payer MEDICARE, OTHER, SELFPAY ==
[2020-11-13 09:25] LABS: Add Manual Diff / Slide Review NO; Basophils Absolute Auto 100 /uL (0-100); Basophils Percent Auto 1.1 % (0-2); Eosinophils Absolute Auto 300 /uL (0-450); Eosinophils Percent Auto 3.6 % (2-4); Hematocrit 48.2 % (41-53); Hemoglobin 15.5 g/dL (13.5-17.5); Lymphocytes Absolute Auto 1900 /uL (1100-4500); Mean Corpuscular HGB Conc 32.1 % (30-36); Mean Corpuscular Hemoglobin 29.8 PG (26-34); Mean Corpuscular Volume 92.9 fL (80-100); Monocytes Absolute Auto 1000 /uL (0-900); Monocytes Percent Auto 12.7 % (3-14); Neutrophils Absolute Auto 4600 /uL (1500-7000); Neutrophils Percent Auto 58.6 % (50-75); Platelet Count 292 X10^3/uL (150-400); Red Blood Cell Count 5.19 X10^6/uL (4.5-5.9); Red Cell Distribution Width 13.4 % (11.6-14.8); White Blood Cell Count 7.9 X10^3/uL (4.5-11.0)
[2020-11-13 09:50] LABS: Alanine Aminotransferase 18 IU/L (<50); Albumin 3.8 g/dL (3.5-5.0); Albumin Globulin Ratio 1.4 (1.0-2.8); Alkaline Phosphatase 95 U/L (38-126); Aspartate Aminotransferase 22 IU/L (17-59); BUN Creatinine Ratio 18.4 (6-22); Bilirubin Total 1.3 mg/dL (0.2-1.3); Blood Urea Nitrogen 19 mg/dL (9-20); Calcium 9.7 mg/dL (8.4-10.2); Carbon Dioxide 29 mmol/L (22-32); Chloride 106 mmol/L (98-107); Cholesterol 136 mg/dL (140-199); Estimated Glomerular Filt Rate > 60.0 mL/min (>60); Globulin 2.7 g/dL (1.7-4.1); Glucose 96 mg/dL (80-110); HDL Cholesterol 53 mg/dL (40-60); HEMOLYSIS < 15 (0-50); LDL Cholesterol Calculated 67 mg/dL (<100); Potassium 4.7 mmol/L (3.4-5.1); Sodium 137 mmol/L (137-145); Total Protein 6.5 g/dL (6.3-8.2); Triglycerides 80 mg/dL (35-150)
== END ==
PROVIDERS: PCP Internal Medicine; Referring Provider Internal Medicine; Visit Provider Internal Medicine
DX: I10 Essential (primary) hypertension (principal); E78.2 Mixed hyperlipidemia
CPT/HCPCS: 36415; 80053; 80061; 85025

== ENCOUNTER → 2020-12-10 16:21 | Outpatient (CLI) | payer MEDICARE, OTHER, SELFPAY ==
[2020-12-10] MEDS: COVID-19 VACC #2, MRNA(MOD) 100 MCG/0.5 ML VIAL IM (16:31)
== END ==
PROVIDERS: PCP Internal Medicine; Visit Provider Internal Medicine
DX: Z23 Encounter for immunization (principal)
CPT/HCPCS: 0012A; 91301

== ENCOUNTER → 2021-06-16 12:19 | Outpatient (CLI) | payer MEDICARE, OTHER, SELFPAY ==
--- NOTE | 2021-06-16 | DI.RAD.S_ITS ---
PROCEDURE: XR HAND RT MIN 3V INDICATIONS: SMASHED HAND TECHNIQUE: 3 views of the hand(s) acquired. COMPARISON: None. FINDINGS: Bones: There is a comminuted and mildly displaced mid metacarpal fracture without intra-articular extension Soft tissues: No suspicious soft tissue calcifications. IMPRESSION: Comminuted 5th metacarpal fracture. Dictated by: Laura Colvin M.D. on 06/16/2021 at 13:08 Approved by: Laura Colvin M.D. on 06/16/2021 at 13:09
== END ==
PROVIDERS: PCP Internal Medicine; Referring Provider Physician Assistant; Visit Provider Physician Assistant
DX: S62.396A Other fracture of fifth metacarpal bone, right hand, initial encounter for closed fracture (principal); M79.641 Pain in right hand; W22.8XXA Striking against or struck by other objects, initial encounter
CPT/HCPCS: 73130

== ENCOUNTER → 2021-09-05 08:06 | Outpatient (CLI) | payer MEDICARE, OTHER, SELFPAY ==
[2021-09-05] MEDS: COVID-19 VACC #3, MRNA(MOD) 50 MCG/0.25 ML VIAL IM (08:17)
== END ==
PROVIDERS: PCP Internal Medicine; Visit Provider Internal Medicine
DX: Z23 Encounter for immunization (principal)
CPT/HCPCS: 0013A; 91301

== ENCOUNTER → 2021-10-01 12:45 | Outpatient (CLI) | payer MEDICARE, OTHER, SELFPAY ==
--- NOTE | 2021-10-01 | DI.MRI.S_ITS ---
PROCEDURE: MR WRIST RT WO CON INDICATIONS: displaced fracture of shaft of fifth metacarpal TECHNIQUE: Noncontrast coronal proton density fast spin echo and T2 fast spin echo with fat saturation; coronal 3-D gradient echo, axial T1 spin echo and T2 fast spin echo with fat saturation, sagittal T1 spin echo through the wrist. COMPARISON: [facility], CR, XR HAND RT MIN 3V, 06/16/2021, 12:26. [facility], CR, XR HAND 3+ VIEWS RIGHT, 09/25/2021, 9:58. FINDINGS: Image quality: Excellent. Bones and cartilage: A healing minimally displaced fracture of the 5th metacarpal shaft is seen with osseous bridging and surrounding osseous edema and periosteal new bone formation. Cystic changes are seen in the central portion of the hamate with mild surrounding osseous edema. Additional cystic changes are seen within the capitate and trapezoid, which are likely degenerative. Mild degenerative changes are seen at the distal radioulnar joint. A small distal radioulnar joint effusion is present. Carpal ligaments: The scapholunate and lunotriquetral ligaments appear intact. In the absence of intra-articular contrast, the extrinsic carpal ligaments are not well identified. There is mild volar tilting of the pisiform. Triangular fibrocartilage complex: There is a large defect in the central triangle fibrocartilage disc. The dorsal and volar radioulnar ligaments appear to be intact. Tendons and soft tissues: The carpal tunnel structures appear normal, including the median nerve. There is trace tenosynovitis of the flexor pollicis longus tendon at the level of the thenar musculature. Trace tenosynovitis of the 5th flexor tendons is also seen at the level of the metacarpal shaft. The ulnar nerve appears normal within Guyon's canal. There is mild tendinosis of the extensor carpi ulnaris tendon. Mild extensor pollicis longus tendinosis is also noted. The remaining extensor tendon compartments demonstrate normal morphology, without pathologic tendon sheath fluid. No soft tissue ganglion cysts. IMPRESSION: 1. Healing minimally displaced fracture of the 5th metacarpal shaft with osseous bridging as well as surrounding osseous edema and periosteal new bone formation. 2. Large full-thickness tear of the central triangle fibrocartilage disc. The distal and volar radioulnar ligaments remain intact. Small distal radioulnar joint effusion. 3. Cystic changes within the hamate, and to a lesser extent the capitate and trapezoid, are nonspecific but may be degenerative in nature. 4. Mild tenosynovitis of the flexor pollicis longus tendon and the 5th flexor tendons. 5. Mild to moderate extensor carpi ulnaris tendinosis. Mild extensor pollicis longus tendinosis. Dictated by: Rafael Ortiz M.D. on 10/01/2021 at 13:41 Approved by: Rafael Ortiz M.D. on 10/01/2021 at 13:58
== END ==
PROVIDERS: PCP Internal Medicine; Referring Provider Orthopaedic Surgery Foot and Ankle Surgery; Visit Provider Orthopaedic Surgery Foot and Ankle Surgery
DX: S62.326A Displaced fracture of shaft of fifth metacarpal bone, right hand, initial encounter for closed fracture (principal); S63.591A Other specified sprain of right wrist, initial encounter; M65.831 Other synovitis and tenosynovitis, right forearm; M25.431 Effusion, right wrist; X58.XXXA Exposure to other specified factors, initial encounter
CPT/HCPCS: 73221

== ENCOUNTER 2024-07-25 07:07 | Day surgery (SDC) | payer MEDICARE, OTHER, SELFPAY ==
[2024-07-25] MEDS: LACTATED RINGERS 1,000 ML 42 ML IV (07:17)
[2024-07-25 07:34] VITALS: BP 156/86; PULSE 71; RESP 18; TEMP 36.5; O2SAT 96
--- NOTE | 2024-07-25 07:41 | PM.HP.1 ---
History of Present Illness History of Present Illness Date Patient Seen: 07/25/24 Time Patient Seen: 07:41 Chief complaint: Colonoscopy Narrative: 74M here for screening colonoscopy. Last C-scope 9 yrs ago. No famhx. No abdominal concerns today. PFSH Social History Smoking Status: Never smoker alcohol intake: current Meds Home Medications and Allergies Home Medications Medication Instructions Recorded Confirmed Type atorvastatin 40 mg tablet 40 mg PO DAILY 07/25/24 07/25/24 History losartan 50 mg tablet 50 mg PO DAILY 07/25/24 07/25/24 History Allergies Allergy/AdvReac Type Severity Reaction Status Date / Time No Known Drug Allergies Allergy Verified 07/25/24 07:18 Exam Vital Signs (past 8 hours): - 07/25/24 07:34 Temperature 97.7 F Pulse Rate 71 Respiratory Rate 18 Blood Pressure 156/86 H Pulse Oximetry 96 Oxygen Delivery Method Room Air Oxygen Delivery Method Room Air Narrative Exam Narrative: General adult man alert oriented no acute distress Chest nonlabored respiration Extremities warm well perfused Assessment & Plan Assessment & Plan narrative: The patient requires colorectal screening and colonoscopy is recommended. Technical details were discussed. Risks, benefits, alternatives explained. Risks including but not limited to myocardial infarction, aspiration, bleeding, pain, missed lesion, incomplete examination, need for further radiographic studies, intestinal injury, and need for major abdominal surgery were discussed. All questions were answered to their satisfaction, and they are in agreement with this plan. Time-Based Coding :: [TOTAL MINUTES] spent with patient and on the chart (including review of chart, obtaining history, exam, reviewing outside data, placing orders, documenting exam and treatment plan, and counseling patient) on [DATE].
[2024-07-25 07:59] VITALS: BP 96/70; PULSE 88; RESP 17; TEMP 36.2; O2SAT 98
--- NOTE | 2024-07-25 08:04 | P.OP.COLON_ITS ---
Operative Date/Time/Diagnoses Date of procedure: 07/25/24 Time of procedure: 08:05 Pre-op diagnosis: Screening Post-op diagnosis: same Procedure & Clinicians Study performed: Screening colonoscopy Same procedure as scheduled: Yes Indications: Screening Surgeon: Larry Mcclendon Procedure Notes Procedure in detail: The history and physical was performed/updated and the patient is ASA class is 2. The procedure was discussed in detail with the patient. Potential risks complications including infection, bleeding, missed diagnosis, perforation, need for surgery, and were explained. Their questions were answered and informed consent was obtained. Patient was brought to the procedure room and placed standard monitoring equipment. The patient's vital signs were monitored continuously throughout the entire procedure. Prior to starting time-out was performed. The patient was placed in the left lateral recumbent position. Procedural sedation was administered by anesthesia. Examination began with a thorough inspection of the perianal area there was no evidence of fissures, fistulae, external hemorrhoids or cutaneous malignancy. The colonoscopy scope was then placed into the anal canal and was advanced to the cecum, which was identified by the ileocecal valve, the appendiceal orifice and the confluence of the taenia. The scope was then slowly withdrawn examining colon thoroughly in all directions, irrigating it of any residual stool. The scope was retroflexed within the rectum The patient tolerated the procedure well. They will be discharged once criteria are met. The prep was of good/excellent quality. The withdrawl time was 7 minutes. FINDINGS * No mass or polyps * Diverticulosis of distal colon * Hemorrhoids Specimen(s): none sent Impression: Diverticulosis Post-procedure Recommendations: High fiber diet Plan for aftercare: No need for further screening colonoscopy Disposition: same day surgery
[2024-07-25 08:05] VITALS: BP 94/60; PULSE 81; RESP 13; O2SAT 98
--- NOTE | 2024-07-25 08:08 | EKG_ITS ---
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
[2024-07-25 08:17] VITALS: BP 120/73; PULSE 75; RESP 16; TEMP 36.6; O2SAT 99
[2024-07-25 08:25] VITALS: BP 140/88; PULSE 68; RESP 16; TEMP 36.6; O2SAT 99
== END 2024-07-25 08:24 | disposition home or self-care (01) ==
PROVIDERS: PCP Family Medicine; Referring Provider Surgery; Visit Provider Surgery
PROC: 0DJD8ZZ Inspection of Lower Intestinal Tract, Via Natural or Artificial Opening Endoscopic (ICD-10-PCS; CPT 45378; principal; 2024-07-25 08:15)
DX: Z12.11 Encounter for screening for malignant neoplasm of colon (principal); K57.30 Diverticulosis of large intestine without perforation or abscess without bleeding; K64.8 Other hemorrhoids
CPT/HCPCS: G0121; 93005; J2704

== ENCOUNTER → 2024-12-28 07:45 | Outpatient (CLI) | payer MEDICARE, OTHER, SELFPAY ==
--- NOTE | 2024-12-28 07:47 | DI.NM.S_ITS ---
PROCEDURE: NM EXERCISE TREADMILL NON NUC COMPARISON: None. INDICATIONS: PVC FINDINGS: Patient exercised per the standard Aleks protocol. Total exercise time was 6 minutes and 34 seconds. Test was terminated secondary to fatigue. Maximal heart rate obtained is 144 bpm which is 98% of max impacted heart rate. Maximum blood pressure was 164/[place] [address]. No ischemic changes noted. Frequent PVCs noted at rest and in recovery. PVCs resolved with stress. No ventricular tachycardia present. No chest pains voiced. Normal heart rate and blood pressure response to exercise. IMPRESSION: 1. Negative exercise treadmill stress test for ischemia. 2. Average exercise tolerance. 3. Frequent PVCs that resolved with exercise. Dictated by: Spencer Sheffield M.D. on 12/28/2024 at 17:12 Approved by: Spencer Sheffield M.D. on 12/28/2024 at 17:14
== END ==
PROVIDERS: PCP Family Medicine; Referring Provider Internal Medicine; Visit Provider Internal Medicine
DX: I49.3 Ventricular premature depolarization (principal)
CPT/HCPCS: 93017

== ENCOUNTER → 2025-01-11 16:18 | Outpatient (CLI) | payer MEDICARE, OTHER, SELFPAY ==
--- NOTE | 2025-01-11 16:19 | DI.ECHO.S_ITS ---
[facility]---------+ [facility] : : [address] : : [place] : : [id number] : : Phone: [phone] Echocardiogram Report + + :Name: JENNIFER BEARD Study Date: 01/11/2025 Height: 70 in : :[facility] ReadingLocation: Weight: 202 lb : : Gender: Male BSA: 2.1 m2 : :: 1950 Age: 74 yrs BP: 186/92 mmHg: :Reason For Study: PVC : :Ordering Physician: JAYSON SHEFFIELD Performed By: Chucho Culver : :Referring: JAYSON SHEFFIELD : + + Interpretation Summary 1. Left ventricle contractility is mildly compromised. Estimate ejection fraction is 40 to 45% with mild global hypokinesis. Borderline concentric LVH. Unable to comment on diastolic function. 2. The right ventricular contractility is normal. 3. Mild biatrial enlargement. Right ventricular cavity is also mildly dilated. The left ventricle is of normal size. 4. Trace to mild mitral regurgitation 5. No obvious intracardiac shunts. 6. No obvious intracardiac masses nor thrombi. 7. No hemodynamically significant pericardial effusion. 8. Low right-sided filling pressures. Conclusion: Mildly compromised left ventricular systolic function with no significant valvular abnormalities. Procedure: A two-dimensional transthoracic echocardiogram with color flow and Doppler was performed. The study quality was technically good. There is no prior echocardiogram noted for this patient. The patient had frequent PVCs during the exam. The heart rate ranged between 57-80 bpm during the study. Left Ventricle: The left ventricle is normal in size. There is borderline concentric left ventricular hypertrophy. There is no ventricular septal defect visualized. The ejection fraction is estimated to be 40-45%. There is mild global hypokinesis of the left ventricle. Right Ventricle: The right ventricle is mildly dilated. The right ventricular systolic function is normal. Atria: The left atrium is mildly dilated. The right atrium is mildly dilated. There is no Doppler evidence for an interatrial shunt. Mitral Valve: The mitral valve leaflets appear mildly thickened, but open well. There is trace mitral regurgitation. Aortic Valve: The aortic valve is trileaflet. The aortic valve opens well. There is trace aortic regurgitation. Tricuspid Valve: The tricuspid valve leaflets are thin and pliable. There is trace tricuspid regurgitation. The right ventricular systolic pressure is estimated to be at least 29 mmHg based on an estimated right atrial pressure of 3 mm Hg. Pulmonic Valve: The pulmonic valve leaflets are thin and pliable; valve motion is normal. There is trace pulmonic regurgitation. Great Vessels: The aortic root is mildly dilated. The ascending aorta is at the upper limits of normal in size. The pulmonary artery is normal size. The IVC is of normal diameter and collapses greater than 50% with a sniff. This suggests a low right atrial pressure of 3 mm Hg. Pericardium/ Pleura There is no pericardial effusion. There is no pleural effusion. MMode/2D Measurements & Calculations LVIDd: 5.4 cm LVOT diam: 2.6 cm LVIDs: 4.1 cm Ao root diam: 3.9 cm FS: 24.8 % asc Aorta Diam: 3.9 cm EPSS: 0.94 cm IVSd: 1.0 cm LVPWd: 1.0 cm LV davis. diameter/BSA (cm/m^2): 2.6 LV sys. diameter/BSA (cm/m^2): 1.9 LA A2 area: 24.5 cm2 RA long axis: 5.2 cm LA A4 area: 21.8 cm2 RA area: 18.6 cm2 LA length (vol): 6.0 cm RA vol: 55.8 ml LA vol: 75.4 ml RA : 26.6 ml/m2 LA vol index: 36.0 ml/m2 IVC diam: 2.3 cm RVD1 (basal): 4.5 cm RVD2 (mid): 3.0 cm TAPSE: 2.1 cm Doppler Measurements & Calculations Ao V2 max: 123.3 cm/sec LVOT Max Chau: 90.4 cm/sec Ao V2 mean: 93.7 cm/sec LV V1 max P.3 mmHg Ao max P.1 mmHg LV V1 VTI: 20.6 cm Ao mean P.8 mmHg DAMIR(I,D): 3.5 cm2 Ao V2 VTI: 30.5 cm DAMIR(V,D): 3.8 cm2 sev ratio: 0.68 DAMIR indexed to BSA (cm^2/m^2): 1.7 MV E max chau: 105.9 cm/sec TR max chau: 255.6 cm/sec MV A max chau: 67.3 cm/sec TR max P.1 mmHg MV E/A: 1.6 PA V2 max: 62.7 cm/sec Med Peak E' Chau: 5.7 cm/sec PA V2 mean: 43.5 cm/sec E/E' med: 18.7 PA mean P.88 mmHg Lat Peak E' Chau: 6.1 cm/sec PA pr(Accel): 43.0 mmHg E/E' lat: 17.2 E/e' average: 18.0 MV dec time: 0.20 sec SV(OT): 107.5 ml Reading Physician:AMMY
== END ==
LOC: ECHO 16:19
PROVIDERS: PCP Family Medicine; Referring Provider Internal Medicine; Visit Provider Internal Medicine
DX: I49.3 Ventricular premature depolarization (principal); I77.810 Thoracic aortic ectasia
CPT/HCPCS: 93306

== ENCOUNTER → 2025-05-29 10:32 | Outpatient (ROUT) | payer MEDICARE, OTHER, SELFPAY ==
[2025-05-29 11:14] LABS: Influenza A - CEPHEID Flu A NEGATIVE (NEGATIVE); Influenza B - CEPHEID Flu B NEGATIVE (NEGATIVE)
[2025-05-29 11:35] LABS: COVID-19 CEPHEID 4-PLEX PCR POSITIVE (Negative)
== END ==
PROVIDERS: PCP Family Medicine; Visit Provider Family Medicine
DX: R50.9 Fever, unspecified (principal); R05.1 Acute cough
CPT/HCPCS: 87637

== ENCOUNTER → 2025-07-19 09:08 | Outpatient (CLI) | payer MEDICARE, OTHER, SELFPAY ==
--- NOTE | 2025-07-19 09:10 | DI.ECHO.S_ITS ---
[facility] +---------+ Hospital : : [address] : : [place] : : [id number] : : Phone: [phone] Echocardiogram Report + + :Name: JENNIFER BEARD Study Date: 07/19/2025 Height: 71 in : :Hospital ReadingLocation: Weight: 200 lb : : Gender: Male BSA: 2.1 m2 : :: 1950 Age: 75 yrs BP: 156/105 mmHg: :Reason For Study: HEART FAILURE WITH MID RANGE EJECTION : :FRACTION : :Ordering Physician: JAYSON SHEFFIELD Performed By: Amanda Wallace : :Referring: JAYSON SHEFFIELD : + + Interpretation Summary - The left ventricular contractility is borderline. Estimated ejection fraction is approximately 50 to 55% with no segmental wall motion abnormalities.. Normal left ventricular size. - No obvious intracardiac masses nor thrombi. - No hemodynamically significant pericardial effusion. - Low right-sided filling pressures. Conclusion: Low normal left ventricular systolic function. When compared with previous echocardiogram, there is recovery of the left ventricular systolic function. Procedure: A two-dimensional transthoracic echocardiogram was performed in limited views only to assess ejection fraction.. The study quality was technically good. Comparison is made with the echocardiogram of 01/11/2025. The patient was in sinus bradycardia with heart rates between 52-59 bpm during the exam. The patient had frequent PVCs during the exam. Left Ventricle: The left ventricle is normal in size. Left ventricular wall thickness is borderline increased. The ejection fraction is estimated to be 50-55%. Great Vessels: The IVC is of normal diameter and collapses greater than 50% with a sniff. This suggests a low right atrial pressure of 3 mm Hg. Pericardium/ Pleura There is no pericardial effusion. There is no pleural effusion. MMode/2D Measurements & Calculations LVIDd: 4.8 cm IVC diam: 1.4 cm LVIDs: 3.8 cm FS: 20.9 % EPSS: 1.4 cm IVSd: 1.1 cm LVPWd: 0.76 cm LV davis. diameter/BSA (cm/m^2): 2.3 LV sys. diameter/BSA (cm/m^2): 1.8 Reading Physician:AMMY
== END ==
LOC: ECHO 09:10
PROVIDERS: PCP Family Medicine; Referring Provider Internal Medicine; Visit Provider Internal Medicine
DX: I50.22 Chronic systolic (congestive) heart failure (principal)
CPT/HCPCS: 93307

== ENCOUNTER → 2025-07-24 06:53 | Outpatient (CLI) | payer MEDICARE, OTHER, SELFPAY ==
[2025-07-24 08:50] LABS: Cholesterol 132 mg/dL (140-199); HDL Cholesterol 56 mg/dL (40-60); Triglycerides 63 mg/dL (35-150)
== END ==
PROVIDERS: PCP Family Medicine; Referring Provider Internal Medicine; Visit Provider Internal Medicine
DX: E78.5 Hyperlipidemia, unspecified (principal)
CPT/HCPCS: 36415; 80061

== ENCOUNTER → 2025-09-21 09:11 | Outpatient (CLI) | payer MEDICARE, OTHER, SELFPAY ==
[2025-09-21 10:22] LABS: Influenza A - CEPHEID Flu A NEGATIVE (NEGATIVE); Influenza B - CEPHEID Flu B NEGATIVE (NEGATIVE)
[2025-09-21 11:00] LABS: COVID-19 CEPHEID 4-PLEX PCR Negative (Negative)
== END ==
PROVIDERS: PCP Family Medicine; Visit Provider Nurse Practitioner Family
DX: J02.9 Acute pharyngitis, unspecified (principal); R05.1 Acute cough
CPT/HCPCS: 87070; 87637

== ENCOUNTER → 2025-09-21 09:31 | Outpatient (CLI) | payer MEDICARE, OTHER, SELFPAY ==
--- NOTE | 2025-09-21 09:32 | DI.RAD.S_ITS ---
PROCEDURE: XR CHEST 2V INDICATIONS: r/o PNA, cough/wheezing TECHNIQUE: 2 views of the chest were acquired. COMPARISON: None. FINDINGS: Surgical changes and devices: None. Lungs and pleura: Lungs are clear. No pleural effusions or pneumothorax. Mediastinum: Mediastinal contours are normal. Heart size is normal. Bones and chest wall: No suspicious bony abnormalities. Soft tissues appear unremarkable. IMPRESSION: No acute cardiopulmonary abnormality is seen. Dictated by: Manish Carrasquillo M.D. on 09/21/2025 at 10:00 Approved by: Manish Carrasquillo M.D. on 09/21/2025 at 10:03
== END ==
LOC: RAD 09:32
PROVIDERS: PCP Family Medicine; Referring Provider Nurse Practitioner Family; Visit Provider Nurse Practitioner Family
DX: J02.9 Acute pharyngitis, unspecified (principal); R05.1 Acute cough
CPT/HCPCS: 71046; 87070; 87637